=== PATIENT | female | born 1955 | race Caucasian/White ===

== ENCOUNTER 2016-06-14 16:58 | Emergency (ER) | payer BC ==
[2016-06-14 17:21] VITALS: BP 170/54
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
== END 2016-06-14 17:50 | disposition home or self-care (01) ==
LOC: VM.ED 16:58
DX: E11.649 Type 2 diabetes mellitus with hypoglycemia without coma (principal); K21.9 Gastro-esophageal reflux disease without esophagitis; F41.9 Anxiety disorder, unspecified; D64.9 Anemia, unspecified; I10 Essential (primary) hypertension; Z98.49 Cataract extraction status, unspecified eye
CPT/HCPCS: 82962; 99285

== ENCOUNTER 2016-08-18 23:53 | Emergency (ER) | payer BC ==
[2016-08-19 04:33] VITALS: BP 169/51
--- NOTE | 2016-08-21 08:31 | ER ---
Date of Service: 08/18/2016 SUBJECTIVE: Rosy presents to the emergency room with complaints of hypoglycemia. She was found to be minimally responsive by her . EMS was summoned. She was found to have a blood sugar in the 30s and was given D50 and quickly regained consciousness. During this episode, she fell striking the left side of her face on something and sustained a hematoma around her left eye. She did not have loss of consciousness and was alert and oriented following receiving the D50. She states she is not experiencing any headache or neck pain. Denies any chest pain or shortness of breath. PAST MEDICAL HISTORY: 1. Coronary artery disease. 2. Type 2 diabetes mellitus. 3. Hypertension. 4. Depression. 5. Anxiety. 6. Chronic pain. MEDICATIONS: 1. Atorvastatin. 2. Norvasc. 3. Detrol. 4. Brilinta. 5. Ativan. 6. Methadone. 7. Novolin. 8. Lantus. 9. Ibuprofen. 10.Neurontin. 11.[place]-3. 12.Cymbalta. 13.Coreg. 14.Caltrate. 15.Aspirin. 16.Vitamin C. 17.Alendronate. ALLERGIES: Tramadol, pregabalin, penicillin, peanuts, morphine, and banana. REVIEW OF SYSTEMS: Denies any headache, neck pain, chest pain, shortness of breath, abdominal pain, or other worrisome signs or symptoms. PHYSICAL EXAMINATION: General: A 60-year-old female patient, in no acute distress. Vital Signs: Please see nurse's notes. Skin: Warm, pink, and dry. HEENT: Head is normocephalic. She does have a hematoma around her left eye. Examination of the eye proper does not reveal any acute trauma. No obvious globe injury noted. No erythema noted to the sclera. Extraocular movements are intact. Again, she does have periorbital ecchymosis and edema to the left eye. No obvious mid face or facial trauma. No malocclusion noted. Spine, no midline C-spine, thoracic, or lumbar discomfort. Chest: No chest wall trauma noted. Lungs: Clear to auscultation. Heart: Regular rate and rhythm. Abdomen: Soft, nontender. There is no hepatosplenomegaly or masses noted. Pelvis: Stable. Extremities: Without edema. Neurologic: She is alert and oriented. Answers all questions appropriately. Her speech is fluent. Her gait is within normal limits. RADIOGRAPHIC DATA: CT scan of the patient's brain and facial bones were obtained. There was no evidence of any acute pathology. Her bedside glucose was 210. EMERGENCY ROOM COURSE: The patient was given sandwich and some juice to consume, which she did. She stated that she was feeling much better and wished to be discharged. ASSESSMENT: 1. Acute hypoglycemia. 2. Hematoma to the left eye post fall secondary to hypoglycemia. PLAN: The patient will be discharged. Advised to go home when she consumes some more food. She is to return if she has any worsening symptoms, increased pain, neck pain, or other worrisome signs or symptoms. All questions were answered. JESSK: 08/19/2016 01:47:44 MODL: 08/19/2016 05:01:24 /[id number]
== END 2016-08-19 01:25 | disposition home or self-care (01) ==
LOC: VM.ED 23:53
DX: E11.649 Type 2 diabetes mellitus with hypoglycemia without coma (principal); S05.12XA Contusion of eyeball and orbital tissues, left eye, initial encounter; I25.10 Atherosclerotic heart disease of native coronary artery without angina pectoris; F32.9 Major depressive disorder, single episode, unspecified; F41.9 Anxiety disorder, unspecified; I10 Essential (primary) hypertension; W19.XXXA Unspecified fall, initial encounter
CPT/HCPCS: 70450; 70486; 82962; 99284

== ENCOUNTER 2017-04-27 19:33 | Emergency (ER) | payer BC ==
[2017-04-27 20:51] LABS: CHLORIDE,CL 102 mmol/L (98-107); SODIUM,NA 140 mmol/L (136-145)
--- NOTE | 2017-04-27 21:28 | EDM.PDOC ---
ED HPI GENERAL MEDICAL PROBLEM - General Chief Complaint: General Stated Complaint: Hypoglycemia Time Seen by Provider: 04/27/17 19:48 Source of Information: Reports: Patient, EMS, EMS Notes Reviewed History Limitations: Reports: No Limitations - History of Present Illness INITIAL COMMENTS - FREE TEXT/NARRATIVE: Patient brought here via ambulance with complaints of hypglycemia. Patient states that she's been dealing with bouts of hypoglycemia for the last 2 years. However according to reports of integrated pest management technician and family she typically deals with this because she is not eating like she should be. She typically has these episodes more often when she is in [place]. She does get therapy for her right hand in [place] which was injured during a work accident. Believes that during these times she just doesn't eat like she should be. Sintia is concerned about her lack of eating. She denies any recent weight loss. She tells me this evening with her flask maker in [place] as Dr. Lindsey. Last blood glucose was 170. Denies smoking, drinking, or drug use. History of HTN, diabetes, overactive, stents x 2 july of 2015 Onset: Today, Sudden Duration: Chronic Severity: Moderate Improves with: Reports: Eating Associated Symptoms: Reports: Diaphoresis - Related Data Allergies Allergy/AdvReac Type Severity Reaction Status Date / Time banana Allergy Other Verified 08/19/16 04:00 morphine Allergy Nausea and Verified 08/19/16 04:00 Vomiting peanut Allergy Other Verified 08/19/16 04:00 Penicillins Allergy Hives Verified 08/19/16 04:00 pregabalin [From Lyrica] Allergy Fever Verified 08/19/16 04:00 tramadol Allergy Hives Verified 08/19/16 04:00 Home Meds: Home Meds Aspirin [Halfprin] 81 mg PO DAILY 05/17/14 [History] Fish Oil/[place]-3 Fatty Acids [Fish Oil 1,000 MG] 3 gm PO DAILY 05/17/14 [History ] Gabapentin [Neurontin] 300 mg PO TID 05/17/14 [History] Alendronate Sodium [Alendronate] 70 mg PO WEEKLY 07/15/15 [History] Ascorbate Calcium [Vitamin C] 500 mg PO DAILY 07/15/15 [History] Calcium Carbonate/Vitamin D3 [Caltrate 600 + D Soft Chew Tab] 2 tab PO DAILY [History] Carboxymethylcellulose [Methocel E 4 M] 1 drop EYEBOTH Q2H PRN 07/15/15 [History ] LORazepam [Ativan] 1 mg PO BID PRN 07/15/15 [History] Tolterodine Tartrate [Detrol LA] 2 mg PO DAILY 07/15/15 [History] Carvedilol [Coreg] 3.125 mg PO BIDMEALS 08/06/15 [History] Methadone 5 mg PO BID 08/06/15 [History] Nitroglycerin [Nitrostat] 0.4 mg SL ASDIRECTED PRN 08/06/15 [History] Ticagrelor [Brilinta] 90 mg PO BID 08/06/15 [History] amLODIPine [Norvasc] 2.5 mg PO DAILY 08/06/15 [History] atorvaSTATin [Lipitor] 20 mg PO BEDTIME 08/06/15 [History] Enalapril Maleate [Vasotec] 10 mg PO DAILY 08/19/16 [History] Glucagon,Human Recombinant [Glucagon Emergency Kit] 1 mg IJ ASDIRECTED 08/19/16 [History] metFORMIN HCl [Glucophage] 1,000 mg PO BID 08/19/16 [History] Past Medical History Cardiovascular History: Reports: Hypertension Gastrointestinal History: Reports: GERD Psychiatric History: Reports: Anxiety Endocrine/Metabolic History: Reports: Diabetes, Type I Hematologic History: Reports: Anemia - Past Surgical History HEENT Surgical History: Reports: Cataract Surgery Cardiovascular Surgical History: Reports: Coronary Artery Stent Musculoskeletal Surgical History: Reports: Hip Replacement Social & Family History - Tobacco Use Smoking Status *Q: Unknown Ever Smoked - Alcohol Use Days Per Week of Alcohol Use: 0 - Recreational Drug Use Recreational Drug Use: No ED ROS GENERAL - Review of Systems Review Of Systems: See Below Constitutional: Reports: Diaphoresis HEENT: Reports: No Symptoms Respiratory: Reports: No Symptoms Cardiovascular: Reports: No Symptoms Endocrine: Reports: No Symptoms GI/Abdominal: Reports: No Symptoms : Reports: No Symptoms Musculoskeletal: Reports: No Symptoms Skin: Reports: No Symptoms Neurological: Reports: No Symptoms Psychiatric: Reports: No Symptoms Hematologic/Lymphatic: Reports: No Symptoms Immunologic: Reports: No Symptoms ED EXAM, GENERAL - Physical Exam Exam: See Below Exam Limited By: No Limitations General Appearance: Alert, WD/WN, No Apparent Distress Eye Exam: Bilateral Eye: EOMI, PERRL Ears: Normal TMs Head: Atraumatic, Normocephalic Neck: Normal Inspection, Supple, Non-Tender, Full Range of Motion Respiratory/Chest: No Respiratory Distress, Lungs Clear, Normal Breath Sounds, No Accessory Muscle Use, Chest Non-Tender Cardiovascular: Normal Peripheral Pulses, Regular Rate, Rhythm, No Edema, No Gallop, No JVD, No Murmur, No Rub Peripheral Pulses: 2+: Posterior Tibial (L), Posterior Tibial (R), Dorsalis Pedis (L), Dorsalis Pedis (R) Back Exam: Normal Inspection, Full Range of Motion, NT Extremities: Normal Inspection, Normal Range of Motion, Non-Tender, Normal Capillary Refill, No Pedal Edema Neurological: Alert, Oriented, CN II-XII Intact, Normal Cognition, Normal Gait, Normal Reflexes, No Motor/Sensory Deficits Psychiatric: Normal Affect, Normal Mood Skin Exam: Warm, Dry, Intact, Normal Color, No Rash Lymphatic: No Adenopathy Course - Orders/Labs/Meds Orders: Active Orders 24 hr Category Date Time Status Accu Check [Blood Glucose Check, Bedside] [] ONETIME Care 04/27/17 20:09 Active Labs: Laboratory Tests 04/27/17 04/27/17 04/27/17 Range/Units 20:23 20:23 20:23 WBC 8.8 (4.0-10.0) x10^3/uL RBC 3.94 L (4.00-5.50) x10^6/uL Hgb 11.7 L (12.0-16.0) g/dL Hct 35.6 (33.0-47.0) % MCV 90.4 D (78.0-93.0) fL MCH 29.7 (26.0-32.0) pg MCHC 32.9 (32.0-36.0) g/dL RDW Coeff of Gerda 13.2 (10.0-15.0) % Plt Count 281 (130-400) x10^3/uL Neut % (Auto) 77.6 (50.0-80.0) % Lymph % (Auto) 15.4 L (25.0-50.0) % [place] % (Auto) 4.8 (2.0-11.0) % Eos % (Auto) 1.7 (0.0-4.0) % Baso % (Auto) 0.5 (0.2-1.2) % Sodium 140 (136-145) mmol/L Potassium 4.5 (3.5-5.1) mmol/L Chloride 102 (98-107) mmol/L Carbon Dioxide 28 (21-32) mmol/L BUN 26 H (7-18) mg/dL Creatinine 1.1 H (0.55-1.02) mg/dL Est Cr Clr Drug Dosing TNP Estimated GFR (MDRD) 50 Glucose 83 (74-106) mg/dL Calcium 9.4 (8.5-10.1) mg/dL Corrected Calcium 9.48 (8.5-10.1) mg/dL Total Bilirubin 0.3 (0.2-1.0) mg/dL AST 18 (15-37) U/L ALT 27 (14-59) U/L Alkaline Phosphatase 75 (46-116) U/L C-Reactive Protein 0.5 (<=0.9) mg/dL Total Protein 8.0 (6.4-8.2) g/dL Albumin 3.9 (3.4-5.0) g/dL Globulin 4.1 Albumin/Globulin Ratio 0.95 Urine Color Light yellow (YELLOW) Urine Appearance Slightly cloudy H (CLEAR) Urine pH 7.0 (5.0-8.0) Ur Specific [place] 1.015 Urine Protein 30 H (NEGATIVE) mg/dL Urine Glucose (UA) 100 H (NEGATIVE) mg/dL Urine Ketones Negative (NEGATIVE) mg/dL Urine Occult Blood Negative (NEGATIVE) Urine Nitrite Negative (NEGATIVE) Urine Bilirubin Negative (NEGATIVE) Urine Urobilinogen 0.2 (0.2) EU/dL Ur Leukocyte Esterase Negative (NEGATIVE) Urine RBC 0-5 (NOT SEEN) /HPF Urine WBC 0-5 (NOT SEEN) /HPF Ur Squamous Epith Cells Not seen (NEGATIVE) /HPF Urine Bacteria Rare (NEGATIVE) /HPF Urine Mucus Rare H (NEGATIVE) /LPF - Re-Assessments/Exams Free Text/Narrative Re-Assessment/Exam: 04/27/17 22:17 Patient is known here for similar type attacks of hypoglycemia. She has not followed up with her primary or flask maker. Education given regarding need to eat during the day on a regular basis to maintain blood glucose levels. Departure - Departure Time of Disposition: 21:30 Disposition: Home, Self-Care 01 Condition: Good Clinical Impression: Hypoglycemia associated with diabetes - Discharge Information Instructions: Hypoglycemia Referrals: Thom Rodriguez MD [Primary Care Provider] - Additional Instructions: You need to make sure to be eating regularly to maintain your blood sugars. Your labs tonight are within normal ranges. Follow up with your primary provider to determine if there is anything else causing this. Please call us if you have any questions or concerns in the meantime. - Problem List & Annotations (1) Hypoglycemia associated with diabetes SNOMED Code(s): 289145029 Code(s): E11.649 - TYPE 2 DIABETES MELLITUS WITH HYPOGLYCEMIA WITHOUT COMA Status: Acute Priority: Medium Current Visit: Yes - Problem List Review Problem List Initiated/Reviewed/Updated: Yes - My Orders Last 24 Hours: My Active Orders 04/27/17 20:09 Accu Check [Blood Glucose Check, Bedside] [RC] ONETIME - Assessment/Plan Last 24 Hours: My Active Orders 04/27/17 20:09 Accu Check [Blood Glucose Check, Bedside] [RC] ONETIME Assessment:: hypoglycemia Plan: You need to make sure to be eating regularly to maintain your blood sugars. Your labs tonight are within normal ranges. Follow up with your primary provider to determine if there is anything else causing this. Please call us if you have any questions or concerns in the meantime.
[2017-04-28 01:18] VITALS: BP 175/62
== END 2017-04-27 21:44 | disposition home or self-care (01) ==
LOC: VM.ED 19:33
DX: E10.649 Type 1 diabetes mellitus with hypoglycemia without coma (principal); K21.9 Gastro-esophageal reflux disease without esophagitis; I10 Essential (primary) hypertension; Z79.82 Long term (current) use of aspirin; Z79.84 Long term (current) use of oral hypoglycemic drugs; Z79.899 Other long term (current) drug therapy; Z91.018 Allergy to other foods; Z91.010 Allergy to peanuts; Z88.5 Allergy status to narcotic agent; Z88.0 Allergy status to penicillin; Z88.8 Allergy status to other drugs, medicaments and biological substances
CPT/HCPCS: 36415; 80053; 81001; 82962; 85025; 86140; 99285

== ENCOUNTER 2017-12-24 11:53 | Emergency (ER) | payer BC ==
[2017-12-24 13:07] VITALS: BP 160/54
--- NOTE | 2017-12-25 06:45 | EDM.PDOC ---
ED HPI GENERAL MEDICAL PROBLEM - General Chief Complaint: General Stated Complaint: HYPOGLYCEMIA Time Seen by Provider: 12/24/17 11:53 Source of Information: Reports: Patient, Family - History of Present Illness INITIAL COMMENTS - FREE TEXT/NARRATIVE: Pt. had a hypoglycemic episode while shopping. EMS was summoned. Pt. was given IV D50. Blood sugar increased from approx. 30mg/dl to 170mg/dl. Pt. became alert and was able to answer questions. Denies any chest pain, shortness of breath, or weakness. Offers no complaints. - Related Data Allergies Allergy/AdvReac Type Severity Reaction Status Date / Time banana Allergy Other Verified 12/24/17 13:02 morphine Allergy Nausea and Verified 12/24/17 13:02 Vomiting peanut Allergy Other Verified 12/24/17 13:02 Penicillins Allergy Hives Verified 12/24/17 13:02 pregabalin [From Lyrica] Allergy Fever Verified 12/24/17 13:02 tramadol Allergy Hives Verified 12/24/17 13:02 Home Meds: Home Meds Aspirin [Halfprin] 81 mg PO DAILY 05/17/14 [History] Fish Oil/[place]-3 Fatty Acids [Fish Oil 1,000 MG] 3 gm PO DAILY 05/17/14 [History ] Gabapentin [Neurontin] 300 mg PO TID 05/17/14 [History] Alendronate Sodium [Alendronate] 70 mg PO WEEKLY 07/15/15 [History] Ascorbate Calcium [Vitamin C] 500 mg PO DAILY 07/15/15 [History] Calcium Carbonate/Vitamin D3 [Caltrate 600 + D Soft Chew Tab] 2 tab PO DAILY [History] Carboxymethylcellulose [Methocel E 4 M] 1 drop EYEBOTH Q2H PRN 07/15/15 [History ] LORazepam [Ativan] 1 mg PO BID PRN 07/15/15 [History] Tolterodine Tartrate [Detrol LA] 2 mg PO DAILY 07/15/15 [History] Carvedilol [Coreg] 3.125 mg PO BIDMEALS 08/06/15 [History] Methadone 5 mg PO BID 08/06/15 [History] Nitroglycerin [Nitrostat] 0.4 mg SL ASDIRECTED PRN 08/06/15 [History] Ticagrelor [Brilinta] 90 mg PO BID 08/06/15 [History] amLODIPine [Norvasc] 2.5 mg PO DAILY 08/06/15 [History] atorvaSTATin [Lipitor] 20 mg PO BEDTIME 08/06/15 [History] Enalapril Maleate [Vasotec] 10 mg PO DAILY 08/19/16 [History] Glucagon,Human Recombinant [Glucagon Emergency Kit] 1 mg IJ ASDIRECTED 08/19/16 [History] metFORMIN HCl [Glucophage] 1,000 mg PO BID 08/19/16 [History] Insulin Aspart [NovoLOG] 1 unit SQ TID 04/28/17 [History] Insulin Degludec [Tresiba Flextouch U-100] 25 units SQ DAILY 04/28/17 [History] Past Medical History Cardiovascular History: Reports: Hypertension Gastrointestinal History: Reports: GERD [employer]BER History: 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: Psychiatric History: Reports: Anxiety Endocrine/Metabolic History: Reports: Diabetes, Type I Hematologic History: Reports: Anemia - Past Surgical History HEENT Surgical History: Reports: Cataract Surgery Cardiovascular Surgical History: Reports: Coronary Artery Stent Musculoskeletal Surgical History: Reports: Hip Replacement Social & Family History - Tobacco Use Smoking Status *Q: Never Smoker - Recreational Drug Use Recreational Drug Use: No ED ROS GENERAL - Review of Systems Review Of Systems: See Below Constitutional: Reports: No Symptoms HEENT: Reports: No Symptoms Respiratory: Reports: No Symptoms Cardiovascular: Reports: No Symptoms Endocrine: Reports: No Symptoms GI/Abdominal: Reports: No Symptoms : Reports: No Symptoms Musculoskeletal: Reports: No Symptoms Skin: Reports: No Symptoms Neurological: Reports: No Symptoms Psychiatric: Reports: No Symptoms Hematologic/Lymphatic: Reports: No Symptoms Immunologic: Reports: No Symptoms ED EXAM, GENERAL - Physical Exam Exam: See Below Exam Limited By: No Limitations General Appearance: Alert, WD/WN, No Apparent Distress Respiratory/Chest: No Respiratory Distress, Lungs Clear, Normal Breath Sounds, No Accessory Muscle Use, Chest Non-Tender Cardiovascular: Normal Peripheral Pulses, Regular Rate, Rhythm, No Edema, No Gallop, No JVD, No Murmur, No Rub Peripheral Pulses: 4+: Radial (L), Radial (R) Extremities: Normal Inspection, Normal Range of Motion, Non-Tender, Normal Capillary Refill, No Pedal Edema Neurological: Alert, Oriented, CN II-XII Intact, Normal Cognition, Normal Gait, Normal Reflexes, No Motor/Sensory Deficits Course - Vital Signs Last Recorded V/S: Last Vital Signs Temp 36.1 C 12/24/17 11:53 Pulse 79 12/24/17 11:53 Resp 18 12/24/17 11:53 BP 160/54 H 12/24/17 11:53 Pulse Ox 98 12/24/17 11:53 Departure - Departure Time of Disposition: 12:28 Disposition: Home, Self-Care 01 Clinical Impression: Hypoglycemia - Discharge Information Instructions: Hypoglycemia, [id number] Referrals: Thom Rodriguez MD [Primary Care Provider] - Forms: ED Department Discharge Additional Instructions: Home to rest. Check your sugars closely today. Eat plenty today. - Assessment/Plan Plan: Home to rest. Check your sugars closely today. Eat plenty today.
== END 2017-12-24 12:28 | disposition home or self-care (01) ==
LOC: VM.ED 11:53
DX: E10.649 Type 1 diabetes mellitus with hypoglycemia without coma (principal); I10 Essential (primary) hypertension; Z79.4 Long term (current) use of insulin; Z79.82 Long term (current) use of aspirin; Z79.899 Other long term (current) drug therapy; Z91.018 Allergy to other foods; Z88.5 Allergy status to narcotic agent; Z88.0 Allergy status to penicillin; Z91.010 Allergy to peanuts
CPT/HCPCS: 99285

== ENCOUNTER 2019-03-14 11:14 | Observation (INO) | payer MEDICARE, OTHER ==
--- NOTE | 2019-03-14 11:33 | EDM.PDOC ---
ED HPI GENERAL MEDICAL PROBLEM - General Chief Complaint: General Stated Complaint: FALL Time Seen by Provider: 03/14/19 11:19 Source of Information: Reports: EMS, EMS Notes Reviewed, Family History Limitations: Reports: No Limitations - History of Present Illness INITIAL COMMENTS - FREE TEXT/NARRATIVE: Patient comes into the emergency department via EMS for a fall resulting in loss of consciousness and low blood sugar. EMS took her blood sugar on scene which showed 31. Patient was disoriented, confused, diaphoretic. She was given D50 1 amp just prior to arrival to the emergency department. states that they were at [employer] shopping when he noticed his got confused, dizzy and fell to the floor. He did give her a glucose drink he carries on him prior to EMS arrival. Upon arrival to the emergency department the patient was becoming more alert and oriented. She is able to follow questions and commands without hesitation. She states that she did feel herself get dizzy and weak in the hardware shop but does not remember anything else until her arrival to the ER. Patient is on a blood thinner however pharmacy states that she has not filled that medication and greater than 30 days. states that they have had some financial difficulties and she has been picking and choosing what medication she takes. It is uncertain if she's actually been on blood thinner the course of the last month. Patient currently denies any pain or discomfort. EMS did provide a ice pack to the right temporal region for she does have a hematoma. Patient denies any pain or discomfort in that area. Patient also denies any recent illnesses or injuries. She denies and vision changes, headache , chest pain, SOB, nausea, vomiting, or peripheral edema. 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 (see below) (D50 1 amp given via EMS) - Related Data Allergies Allergy/AdvReac Type Severity Reaction Status Date / Time banana Allergy Other Verified 03/14/19 12:03 morphine Allergy Nausea and Verified 03/14/19 12:03 Vomiting peanut Allergy Other Verified 03/14/19 12:03 Penicillins Allergy Hives Verified 03/14/19 12:03 pregabalin [From Lyrica] Allergy Fever Verified 03/14/19 12:03 tramadol Allergy Hives Verified 03/14/19 12:03 Home Meds: Home Meds Aspirin [Halfprin] 81 mg PO DAILY 05/17/14 [History] Fish Oil/[place]-3 Fatty Acids [Fish Oil 1,000 MG] 3 gm PO DAILY 05/17/14 [History ] Gabapentin [Neurontin] 300 mg PO TID 05/17/14 [History] Alendronate Sodium [Alendronate] 70 mg PO WEEKLY 07/15/15 [History] Ascorbate Calcium [Vitamin C] 500 mg PO DAILY 07/15/15 [History] Calcium Carbonate/Vitamin D3 [Caltrate 600 + D Soft Chew Tab] 2 tab PO DAILY [History] Carboxymethylcellulose [Methocel E 4 M] 1 drop EYEBOTH Q2H PRN 07/15/15 [History ] LORazepam [Ativan] 1 mg PO BID PRN 07/15/15 [History] Tolterodine Tartrate [Detrol LA] 2 mg PO DAILY 07/15/15 [History] Carvedilol [Coreg] 3.125 mg PO BIDMEALS 08/06/15 [History] Methadone 5 mg PO BID 08/06/15 [History] Nitroglycerin [Nitrostat] 0.4 mg SL ASDIRECTED PRN 08/06/15 [History] Ticagrelor [Brilinta] 90 mg PO BID 08/06/15 [History] amLODIPine [Norvasc] 2.5 mg PO DAILY 08/06/15 [History] atorvaSTATin [Lipitor] 20 mg PO BEDTIME 08/06/15 [History] Enalapril Maleate [Vasotec] 10 mg PO DAILY 08/19/16 [History] Glucagon,Human Recombinant [Glucagon Emergency Kit] 1 mg IJ ASDIRECTED 08/19/16 [History] metFORMIN HCl [Glucophage] 1,000 mg PO BID 08/19/16 [History] Insulin Aspart [NovoLOG] 1 unit SQ TID 04/28/17 [History] Insulin Degludec [Tresiba Flextouch U-100] 25 units SQ DAILY 04/28/17 [History] Past Medical History Cardiovascular History: Reports: Hypertension Gastrointestinal History: Reports: GERD 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 Constitutional: Reports: No Symptoms HEENT: Reports: No Symptoms Respiratory: Reports: No Symptoms Cardiovascular: Reports: No Symptoms Endocrine: Reports: No Symptoms GI/Abdominal: Reports: No Symptoms Neurological: Reports: No Symptoms Psychiatric: Reports: No Symptoms Hematologic/Lymphatic: Reports: No Symptoms Immunologic: Reports: No Symptoms ED EXAM, GENERAL - Physical Exam Exam: See Below Exam Limited By: No Limitations General Appearance: Alert, WD/WN, No Apparent Distress Eye Exam: Bilateral Eye: EOMI, PERRL Ears: Normal External Exam, Normal Canal, Hearing Grossly Normal, Normal TMs Ear Exam: Bilateral Ear: Auricle Normal, Canal Normal, TM normal Nose: Normal Inspection, Normal Mucosa, No Blood Throat/Mouth: Normal Inspection, Normal Lips Head: Other (right temporal region hematoma noted above the right eye left pariatal-temporal region hematoma noted. ) Neck: Normal Inspection, Supple, Non-Tender, Full Range of Motion, Other (did state 1 first time on palpation pain noted midline over C3-4. Second attempt pt denied pain. ) Respiratory/Chest: No Respiratory Distress, Lungs Clear, Normal Breath Sounds, No Accessory Muscle Use, Chest Non-Tender Cardiovascular: Normal Peripheral Pulses, Regular Rate, Rhythm, No Edema Back Exam: Normal Inspection, Full Range of Motion Extremities: Normal Inspection, Normal Range of Motion, Non-Tender Neurological: Alert, Oriented Psychiatric: Normal Affect, Normal Mood Skin Exam: Warm, Dry, Intact Course - Orders/Labs/Meds Orders: Active Orders 24 hr Category Date Time Status EKG Documentation Completion [RC] STAT Care 03/14/19 11:24 Active Cervical Spine wo Cont [CT] Stat Exams 03/14/19 11:24 Taken Head wo Cont [CT] Stat Exams 03/14/19 11:24 Taken COMPREHENSIVE METABOLIC PN,CMP [CHEM] Stat Lab 03/14/19 11:34 Received INR,PT,PROTHROMBIN TIME [COAG] Stat Lab 03/14/19 11:34 Received TROPONIN I [CHEM] Stat Lab 03/14/19 11:34 Received Labs: Laboratory Tests 03/14/19 03/14/19 Range/Units 11:18 11:34 WBC 3.9 L (4.0-10.0) x10^3/uL RBC 4.31 (4.00-5.50) x10^6/uL Hgb 12.8 (12.0-16.0) g/dL Hct 39.6 (33.0-47.0) % MCV 91.9 (78.0-93.0) fL MCH 29.7 (26.0-32.0) pg MCHC 32.3 (32.0-36.0) g/dL RDW Coeff of Gerda 18.4 H (10.0-15.0) % Plt Count 194 D (130-400) x10^3/uL Neut % (Auto) 70.7 (50.0-80.0) % Lymph % (Auto) 16.3 L (25.0-50.0) % [place] % (Auto) 13.0 H (2.0-11.0) % Eos % (Auto) 0.0 (0.0-4.0) % Baso % (Auto) 0.0 L (0.2-1.2) % POC Glucose 119 H (74-106) mg/dL - Re-Assessments/Exams Free Text/Narrative Re-Assessment/Exam: 03/14/19 12:34 Patient is alert and oriented and is following all commands. It is recommended that she be hospitalized for observation regarding her loss of consciousness and hypoglycemic events. Departure - Departure Time of Disposition: 12:40 Disposition: Refer to Observation Condition: Good Clinical Impression: Hematoma and contusion, Hypoglycemia, Anticoagulant long-term use Fall Qualifiers: Encounter type: initial encounter Qualified Code(s): W19.XXXA - Unspecified fall, initial encounter - Discharge Information *PRESCRIPTION DRUG MONITORING PROGRAM REVIEWED*: Not Applicable *COPY OF PRESCRIPTION DRUG MONITORING REPORT IN PATIENT POLO: Not Applicable Referrals: Thom Rodriguez MD [Primary Care Provider] - Forms: ED Department Discharge Sepsis Event Note - Focused Exam Date Exam was Performed: 03/14/19 Time Exam was Performed: 11:49 - Problem List & Annotations (1) Hypoglycemic event in diabetes SNOMED Code(s): 821899881 Code(s): E11.649 - TYPE 2 DIABETES MELLITUS WITH HYPOGLYCEMIA WITHOUT COMA Status: Acute Current Visit: No - Problem List Review Problem List Initiated/Reviewed/Updated: Yes - My Orders Last 24 Hours: My Active Orders 03/14/19 11:24 EKG Documentation Completion [RC] STAT Cervical Spine wo Cont [CT] Stat Head wo Cont [CT] Stat 03/14/19 11:34 COMPREHENSIVE METABOLIC PN,CMP [CHEM] Stat INR,PT,PROTHROMBIN TIME [COAG] Stat TROPONIN I [CHEM] Stat - Assessment/Plan Admission H&P: Please use this note as an admission H&P Last 24 Hours: My Active Orders 03/14/19 11:24 EKG Documentation Completion [RC] STAT Cervical Spine wo Cont [CT] Stat Head wo Cont [CT] Stat 03/14/19 11:34 COMPREHENSIVE METABOLIC PN,CMP [CHEM] Stat INR,PT,PROTHROMBIN TIME [COAG] Stat TROPONIN I [CHEM] Stat Assessment:: 1. Hypoglycemia 2. Fall with loss of consciousness 3. Head hematoma 4. Anticoagulant use Plan: 1. CT of the head and neck completed in the emergency department. Results reviewed with patient 2. Labs completed in ER. Results reviewed with patient 3. EKG completed in the ER. Results reviewed with patient 4. C-spine maintain until CT results obtained due to the patient losing consciousness and level of alertness not back to patient's baseline with statements of intermittent upon palpation- Negative 5. Patient will be admitted to the hospitals observation unit for neurological assessment, hypoglycemic event, loss of consciousness, and hematoma formation while on blood thinners. 6. Patient will be admitted as observation, up with assistance, CLAIRE harris applied for DVT prophylaxis, ambulation encourage, diabetic diet, blood glucose monitoring and neuro checks completed. 7. All questions and concerns were addressed with the family prior to admission 8. Nursing updated of the plan of care
--- NOTE | 2019-03-14 11:52 | CT ---
[id number] CT/CT Head WO IV EXAM: CT Head WO IV CLINICAL DATA: FALL. COMPARISON STUDY: 2016. FINDINGS: No intracranial hemorrhage, extra-axial fluid collection, mass, or acute ischemia. No hydrocephalus. Scalp contusions over the right frontal and left frontotemporal regions. No underlying calvarial fracture. Mild changes of paranasal sinusitis. IMPRESSION: Right frontal and left frontotemporal scalp contusions without underlying calvarial fracture or acute intracranial hemorrhage. Will Null MD 03/14/19 [id number] Thank you for allowing us to participate in the care of your patient.
[2019-03-14 12:02] LABS: CHLORIDE,CL 105 mmol/L (98-107); SODIUM,NA 137 mmol/L (136-145)
[2019-03-14] MEDS ORDERED: Ondansetron 4 MG Tab.DIS PO PRN (13:28)
[2019-03-14] MEDS ORDERED: Hypromellose 0.3% Ophth Soln 15 ML Bottle EYEBOTH PRN (13:31)
[2019-03-14] MEDS ORDERED: LORazepam 0.5 MG Tab PO PRN (13:31)
[2019-03-14] MEDS ORDERED: Nitroglycerin 0.4 MG Tab.SL SL PRN (13:31)
--- NOTE | 2019-03-14 13:41 | CT ---
[id number] CT/CT Cervical Spine WO IV EXAM: CT Cervical Spine WO IV INDICATION: FALL. COMPARISON: None. DISCUSSION: No fracture or compression deformity. Vertebral bodies remain in normal alignment. Advanced degenerative change at the atlantoaxial articulation. Advanced spondylosis on the left involving the masses of C1 and C2. No prevertebral soft tissue edema. Lung apices are clear. IMPRESSION: No acute findings in the cervical spine. Will Null MD 03/14/19 [id number] Thank you for allowing us to participate in the care of your patient.
[2019-03-14] MEDS ORDERED: LORazepam 0.5 MG Tab**PTOM PO PRN (17:22)
[2019-03-14] MEDS ORDERED: INSULIN ASPART SQ SCH (18:00)
[2019-03-14] MEDS ORDERED: Carvedilol 3.125 MG Tab PO SCH (18:00)
[2019-03-14] MEDS: CARVEDILOL 3.125 MG PO SCH (18:47)
[2019-03-14] MEDS: INSULIN ASPART SQ SCH (18:47)
[2019-03-14] MEDS: TAPENTADOL 75 MG PO SCH (19:47)
[2019-03-14] MEDS: Hypromellose 0.3% Ophth Soln 15 ML Bottle EYEBOTH SCH (19:47)
[2019-03-14] MEDS ORDERED: ATORVASTATIN 80 MG PO SCH (20:00)
[2019-03-14] MEDS ORDERED: Gabapentin 300 MG Cap**PTOM PO SCH (20:00)
[2019-03-14] MEDS ORDERED: Gabapentin 300 MG Cap PO SCH (20:00)
[2019-03-14] MEDS ORDERED: Calcium Carbonate/Vitamin D3 1250 MG-200 Unit Tab PO SCH (20:00)
[2019-03-14] MEDS ORDERED: atorvaSTATin 40 MG Tab PO SCH (20:00)
[2019-03-15 06:04] VITALS: PULSE 56
[2019-03-15] MEDS: INSULIN DEGLUDEC SQ SCH ×2 (07:58→08:05)
[2019-03-15] MEDS: TAPENTADOL 75 MG PO SCH (07:59)
[2019-03-15] MEDS: Hypromellose 0.3% Ophth Soln 15 ML Bottle EYEBOTH SCH (07:59)
[2019-03-15] MEDS: INSULIN ASPART SQ SCH ×2 (07:59→11:15)
[2019-03-15] MEDS: CARVEDILOL 3.125 MG PO SCH (08:00)
[2019-03-15] MEDS ORDERED: Gabapentin 300 MG Cap**PTOM PO SCH (08:00)
[2019-03-15] MEDS ORDERED: Gabapentin 300 MG Cap PO SCH (08:00)
[2019-03-15] MEDS ORDERED: Aspirin 81 MG Tab.EC PO SCH (08:00)
[2019-03-15] MEDS ORDERED: ENALAPRIL 10 MG PO SCH (08:00)
[2019-03-15] MEDS ORDERED: AMLODIPINE 2.5 MG PO SCH (08:00)
[2019-03-15] MEDS ORDERED: Fish Oil/Omega-3 Fatty Acids 1 Gm Cap PO SCH (08:00)
[2019-03-15] MEDS ORDERED: FESOTERODINE FUMARATE 4 MG PO SCH ×2 (08:00)
[2019-03-15] MEDS ORDERED: Ascorbic Acid 500 MG Tab PO SCH (08:00)
[2019-03-15] MEDS ORDERED: DULoxetine 20 MG Cap PO SCH (08:00)
[2019-03-15] MEDS ORDERED: DULOXETINE 20 MG PO SCH (08:00)
[2019-03-15] MEDS ORDERED: amLODIPine 2.5 MG Tab PO SCH (08:00)
[2019-03-15 08:01] VITALS: BP 135/60
[2019-03-15 08:04] LABS: ANION GAP 15.8 mmol/L (10-20)
--- NOTE | 2019-03-15 10:49 | PCM.DCSUM1 ---
Discharge Summary - Hospital Course Free Text/Narrative:: Rosy is a 63 year old female who presented to the ER per ambulance after a fall with brief loss of consciousness and hypoglycemia. Patient recalls feeling weak at the hardware store but nothing after. Was disoriented, confused and diaphoretic on EMS arrival. EMS did check blood sugar on scene and was low at 31. She was given 1 amp of D50 prior to arrival to ER. She had been out shopping and had noted that she was becoming dizzy, was confused and fell to the floor. He did given her a glucose drink that he caries with him. Patient did hit head on floor. due to some recent financial difficultes, did relate that she has been picking and choosing what medication to take. History of being on blood thinners but unsure how much she had taken over the last month as pharmacy did report she had not filled this med. On arrival to the ER, patient was oriented, lethargic but becoming more alert over time. Denies any pain to head or discomfort elsewhere. Had not been ill. No chest pain, shortness of breath, N/V/D. Labs note improvement of glucose to 107 initially. Creatinine 1.7. Other labs stable. CT scan of head and neck were clear. Admitted for neurological monitoring. Diagnosis: Stroke: No Modified Newport Scale: No Symptoms at All Modified Newport Scale Score: 0 - Discharge Data Discharge Date: 03/15/19 Discharge Disposition: Home, Self-Care 01 Condition: Good - Referral to Home Health Primary Care Physician: Thom Rodriguez MD - Patient Summary/Data Complications: none Hospital Course: Patient is feeling good this am. Denies any head pain. Bruising noted to right forehead region, nontender. BARBARA. Lung sounds clear, heart rate regular. She denies pain in joints. Has been getting increase Fiasp units per carb base, received an extra 8 units last night, 6 units this am as blood sugars have remained 300-420. Patient relates not unusual for her after an event like this. Will discharge home with usual meds. 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 - Patient Instructions Diet: Diabetic Diet Activity: As Tolerated - Discharge Plan *PRESCRIPTION DRUG MONITORING PROGRAM REVIEWED*: Not Applicable *COPY OF PRESCRIPTION DRUG MONITORING REPORT IN PATIENT POLO: Not Applicable Home Medications: Home Meds Aspirin [Halfprin] 81 mg PO DAILY 05/17/14 [History] Fish Oil/Blythe-3 Fatty Acids [Fish Oil 1,000 MG] 3 gm PO DAILY 05/17/14 [History ] Gabapentin [Neurontin] 300 mg PO DAILY 05/17/14 [History] Ascorbate Calcium [Vitamin C] 500 mg PO DAILY 07/15/15 [History] Calcium Carbonate/Vitamin D3 [Caltrate 600 + D Soft Chew Tab] 2 tab PO BEDTIME 07/15/15 [History] Carboxymethylcellulose [Methocel E 4 M] 1 drop EYEBOTH Q2H PRN 07/15/15 [History ] LORazepam [Ativan] 1 mg PO BID PRN 07/15/15 [History] Carvedilol [Coreg] 3.125 mg PO BIDMEALS 08/06/15 [History] Nitroglycerin [Nitrostat] 0.4 mg SL ASDIRECTED PRN 08/06/15 [History] Ticagrelor [Brilinta] 90 mg PO BID 08/06/15 [History] amLODIPine [Norvasc] 2.5 mg PO DAILY 08/06/15 [History] atorvaSTATin [Lipitor] 80 mg PO BEDTIME 08/06/15 [History] Enalapril Maleate [Vasotec] 10 mg PO DAILY 08/19/16 [History] Glucagon,Human Recombinant [Glucagon Emergency Kit] 1 mg IJ ASDIRECTED 08/19/16 [History] Insulin Degludec [Tresiba Flextouch U-100] 21 units SQ DAILY 04/28/17 [History] DULoxetine [Cymbalta] 20 mg PO DAILY 03/14/19 [History] Fesoterodine Fumarate [Toviaz] 4 mg PO DAILY 03/14/19 [History] Gabapentin [Neurontin] 600 mg PO BEDTIME 03/14/19 [History] Insulin Aspart (Niacinamide) [Fiasp Penfill 100 Unit/ml Cart] 1 unit SQ ASDIRECTED 03/14/19 [History] Tapentadol HCl [Nucynta] 75 mg PO TID 03/14/19 [History] cycloSPORINE [Restasis Multidose] 1 drop EYEBOTH BID 03/14/19 [History] Forms: ED Department Discharge Referrals: Thom Rodriguez MD [Primary Care Provider] - (Follow up with Dr. Mclean in one week) - Discharge Summary/Plan Comment DC Time >30 min.: No - General Info Date of Service: 03/15/19 Admission Dx/Problem (Free Text: Hypokalemia FAll with contusion Functional Status: Reports: Pain Controlled, Tolerating Diet, Ambulating - Review of Systems General: Denies: Weakness, Fatigue, Malaise HEENT: Denies: Ear Pain Pulmonary: Denies: Shortness of Breath, Cough Cardiovascular: Denies: Chest Pain, Edema, Lightheadedness Gastrointestinal: Denies: Abdominal Pain, Nausea, Vomiting Genitourinary: Reports: No Symptoms Musculoskeletal: Reports: No Symptoms Skin: Reports: Bruising Neurological: Denies: Confusion, Headache, Weakness - Patient Data Vitals - Most Recent: Last Vital Signs Temp 97.6 F 03/15/19 06:04 Pulse 56 L 03/15/19 08:00 Resp 18 03/15/19 06:04 BP 135/60 03/15/19 08:00 Pulse Ox 95 03/15/19 06:04 Weight - Most Recent: 138 lb I&O - Last 24 hours: Intake & Output 03/14/19 03/15/19 03/15/19 22:59 06:59 14:59 Intake Total 300 Balance 300 Lab Results - Last 24 hrs: Laboratory Results - last 24 hr 03/14/19 03/14/19 03/14/19 Range/Units 11:18 11:34 11:34 WBC 3.9 L (4.0-10.0) x10^3/uL RBC 4.31 (4.00-5.50) x10^6/uL Hgb 12.8 (12.0-16.0) g/dL Hct 39.6 (33.0-47.0) % MCV 91.9 (78.0-93.0) fL MCH 29.7 (26.0-32.0) pg MCHC 32.3 (32.0-36.0) g/dL RDW Coeff of Gerda 18.4 H (10.0-15.0) % Plt Count 194 D (130-400) x10^3/uL Neut % (Auto) 70.7 (50.0-80.0) % Lymph % (Auto) 16.3 L (25.0-50.0) % Stone % (Auto) 13.0 H (2.0-11.0) % Eos % (Auto) 0.0 (0.0-4.0) % Baso % (Auto) 0.0 L (0.2-1.2) % PT 10.5 (10.0-12.8) SEC INR 0.9 L (2.0-3.5) Sodium (136-145) mmol/L Potassium (3.5-5.1) mmol/L Chloride (98-107) mmol/L Carbon Dioxide (21-32) mmol/L Anion Gap (10-20) mmol/L BUN (7-18) mg/dL Creatinine (0.55-1.02) mg/dL Est Cr Clr Drug Dosing Estimated GFR (MDRD) Glucose (74-106) mg/dL POC Glucose 119 H (74-106) mg/dL Calcium (8.5-10.1) mg/dL Corrected Calcium (8.5-10.1) mg/dL Total Bilirubin (0.2-1.0) mg/dL AST (15-37) U/L ALT (14-59) U/L Alkaline Phosphatase (46-116) U/L POC Troponin I (0.00-0.08) ng/mL Total Protein (6.4-8.2) g/dL Albumin (3.4-5.0) g/dL Globulin Albumin/Globulin Ratio 03/14/19 03/14/19 03/14/19 Range/Units 11:34 11:37 17:24 WBC (4.0-10.0) x10^3/uL RBC (4.00-5.50) x10^6/uL Hgb (12.0-16.0) g/dL Hct (33.0-47.0) % MCV (78.0-93.0) fL MCH (26.0-32.0) pg MCHC (32.0-36.0) g/dL RDW Coeff of Gerda (10.0-15.0) % Plt Count (130-400) x10^3/uL Neut % (Auto) (50.0-80.0) % Lymph % (Auto) (25.0-50.0) % Stone % (Auto) (2.0-11.0) % Eos % (Auto) (0.0-4.0) % Baso % (Auto) (0.2-1.2) % PT (10.0-12.8) SEC INR (2.0-3.5) Sodium 137 (136-145) mmol/L Potassium 5.0 (3.5-5.1) mmol/L Chloride 105 (98-107) mmol/L Carbon Dioxide 23 (21-32) mmol/L Anion Gap 14.0 (10-20) mmol/L BUN 37 H (7-18) mg/dL Creatinine 1.7 H (0.55-1.02) mg/dL Est Cr Clr Drug Dosing TNP Estimated GFR (MDRD) 30 Glucose 129 H (74-106) mg/dL POC Glucose 473 H* (74-106) mg/dL Calcium 9.9 (8.5-10.1) mg/dL Corrected Calcium 10.46 H (8.5-10.1) mg/dL Total Bilirubin 0.4 (0.2-1.0) mg/dL AST 13 L (15-37) U/L ALT 14 (14-59) U/L Alkaline Phosphatase 89 (46-116) U/L POC Troponin I 0.00 (0.00-0.08) ng/mL Total Protein 7.3 (6.4-8.2) g/dL Albumin 3.3 L (3.4-5.0) g/dL Globulin 4.0 Albumin/Globulin Ratio 0.83 03/14/19 03/14/19 03/15/19 Range/Units 20:02 22:01 06:34 WBC (4.0-10.0) x10^3/uL RBC (4.00-5.50) x10^6/uL Hgb (12.0-16.0) g/dL Hct (33.0-47.0) % MCV (78.0-93.0) fL MCH (26.0-32.0) pg MCHC (32.0-36.0) g/dL RDW Coeff of Gerda (10.0-15.0) % Plt Count (130-400) x10^3/uL Neut % (Auto) (50.0-80.0) % Lymph % (Auto) (25.0-50.0) % Stone % (Auto) (2.0-11.0) % Eos % (Auto) (0.0-4.0) % Baso % (Auto) (0.2-1.2) % PT (10.0-12.8) SEC INR (2.0-3.5) Sodium (136-145) mmol/L Potassium (3.5-5.1) mmol/L Chloride (98-107) mmol/L Carbon Dioxide (21-32) mmol/L Anion Gap (10-20) mmol/L BUN (7-18) mg/dL Creatinine (0.55-1.02) mg/dL Est Cr Clr Drug Dosing Estimated GFR (MDRD) Glucose (74-106) mg/dL POC Glucose 472 H* 376 H 319 H (74-106) mg/dL Calcium (8.5-10.1) mg/dL Corrected Calcium (8.5-10.1) mg/dL Total Bilirubin (0.2-1.0) mg/dL AST (15-37) U/L ALT (14-59) U/L Alkaline Phosphatase (46-116) U/L POC Troponin I (0.00-0.08) ng/mL Total Protein (6.4-8.2) g/dL Albumin (3.4-5.0) g/dL Globulin Albumin/Globulin Ratio 03/15/19 03/15/19 03/15/19 Range/Units 07:16 07:16 07:54 WBC 3.3 L (4.0-10.0) x10^3/uL RBC 4.26 (4.00-5.50) x10^6/uL Hgb 12.8 (12.0-16.0) g/dL Hct 39.5 (33.0-47.0) % MCV 92.7 (78.0-93.0) fL MCH 30.0 (26.0-32.0) pg MCHC 32.4 (32.0-36.0) g/dL RDW Coeff of Gerda 18.6 H (10.0-15.0) % Plt Count 215 (130-400) x10^3/uL Neut % (Auto) 72.0 (50.0-80.0) % Lymph % (Auto) 16.1 L (25.0-50.0) % Stone % (Auto) 11.9 H (2.0-11.0) % Eos % (Auto) 0.0 (0.0-4.0) % Baso % (Auto) 0.0 L (0.2-1.2) % PT (10.0-12.8) SEC INR (2.0-3.5) Sodium 139 (136-145) mmol/L Potassium 4.8 (3.5-5.1) mmol/L Chloride 106 (98-107) mmol/L Carbon Dioxide 22 (21-32) mmol/L Anion Gap 15.8 (10-20) mmol/L BUN 30 H (7-18) mg/dL Creatinine 1.3 H (0.55-1.02) mg/dL Est Cr Clr Drug Dosing 35.69 Estimated GFR (MDRD) 41 Glucose 341 H (74-106) mg/dL POC Glucose 313 H (74-106) mg/dL Calcium 10.3 H (8.5-10.1) mg/dL Corrected Calcium (8.5-10.1) mg/dL Total Bilirubin (0.2-1.0) mg/dL AST (15-37) U/L ALT (14-59) U/L Alkaline Phosphatase (46-116) U/L POC Troponin I (0.00-0.08) ng/mL Total Protein (6.4-8.2) g/dL Albumin (3.4-5.0) g/dL Globulin Albumin/Globulin Ratio 03/15/ Range/Units 10:39 WBC (4.0-10.0) x10^3/uL RBC (4.00-5.50) x10^6/uL Hgb (12.0-16.0) g/dL Hct (33.0-47.0) % MCV (78.0-93.0) fL MCH (26.0-32.0) pg MCHC (32.0-36.0) g/dL RDW Coeff of Gerda (10.0-15.0) % Plt Count (130-400) x10^3/uL Neut % (Auto) (50.0-80.0) % Lymph % (Auto) (25.0-50.0) % Stone % (Auto) (2.0-11.0) % Eos % (Auto) (0.0-4.0) % Baso % (Auto) (0.2-1.2) % PT (10.0-12.8) SEC INR (2.0-3.5) Sodium (136-145) mmol/L Potassium (3.5-5.1) mmol/L Chloride (98-107) mmol/L Carbon Dioxide (21-32) mmol/L Anion Gap (10-20) mmol/L BUN (7-18) mg/dL Creatinine (0.55-1.02) mg/dL Est Cr Clr Drug Dosing Estimated GFR (MDRD) Glucose (74-106) mg/dL POC Glucose 414 H* (74-106) mg/dL Calcium (8.5-10.1) mg/dL Corrected Calcium (8.5-10.1) mg/dL Total Bilirubin (0.2-1.0) mg/dL AST (15-37) U/L ALT (14-59) U/L Alkaline Phosphatase (46-116) U/L POC Troponin I (0.00-0.08) ng/mL Total Protein (6.4-8.2) g/dL Albumin (3.4-5.0) g/dL Globulin Albumin/Globulin Ratio Med Orders - Current: Current Medications Amlodipine Besylate (Norvasc) 2.5 mg PO DAILY [facility] Last Admin: 03/15/19 08:00 Dose: 2.5 mg Artificial Tears (Genteal Mild To Moderate Ophth Soln) 0 ml EYEBOTH Q2H PRN PRN Reason: Dry Eyes Artificial Tears (Genteal Mild To Moderate Ophth Soln) 1 ml EYEBOTH BID [facility] Last Admin: 03/15/19 07:59 Dose: 1 drop Ascorbic Acid (Vitamin C) 500 mg PO DAILY [facility] Last Admin: 03/15/19 08:00 Dose: 500 mg Aspirin (Halfprin) 81 mg PO DAILY [facility] Last Admin: 03/15/19 08:00 Dose: 81 mg Calcium Carbonate (Calcium Carbonate/Vitamin D 1250 Mg-200 Unit) 2 tab PO BEDTIME [facility] Last Admin: 03/14/19 19:46 Dose: 2 tab Carvedilol (Coreg) 3.125 mg PO BIDMEALS [facility] Last Admin: 03/15/19 08:00 Dose: 3.125 mg Duloxetine HCl (Cymbalta) 20 mg PO DAILY [facility] Last Admin: 03/15/19 08:00 Dose: 20 mg Enalapril Maleate (Vasotec) 10 mg PO DAILY [facility] Last Admin: 03/15/19 08:00 Dose: 10 mg Fish Oil (Fish Oil) 3 gm PO DAILY [facility] Last Admin: 03/15/19 07:59 Dose: 3 gm Gabapentin (Neurontin) 900 mg PO BEDTIME [facility] Last Admin: 03/14/19 19:48 Dose: 900 mg Gabapentin (Neurontin) 300 mg PO DAILY [facility] Last Admin: 03/15/19 07:59 Dose: 300 mg Lorazepam (Ativan) 0.5 mg PO BID PRN PRN Reason: Anxiety Nitroglycerin (Nitrostat) 0.4 mg SL ASDIRECTED PRN PRN Reason: Chest Pain Insulin Degludec [ Tresiba Flextouch U- 100] (Own Supply) 0 units SQ DAILY [facility] Last Admin: 03/15/19 08:05 Dose: 13 units Tapentadol [Nucynta] (75mg (Own Supply)) 0 mg PO TID [facility] Last Admin: 03/15/19 07:59 Dose: 75 mg Atorvastatin 80mg (Ptom) 80 each PO BEDTIME [facility] Last Admin: 03/14/19 19:49 Dose: 80 each Insulin Aspart Insulin [Fiasp] Ptom 0 unit SQ TIDMEALS [facility] Last Admin: 03/15/19 07:59 Dose: 3 unit Fesoterodine Fumarate [Toviaz] 4mg (Own Supply) 4 mg PO DAILY [facility] Last Admin: 03/15/19 08:00 Dose: 4 mg Ondansetron HCl (Zofran Odt) 4 mg PO Q6H PRN PRN Reason: nausea, able to take PO Discontinued Medications Amlodipine Besylate (Norvasc) 2.5 mg PO DAILY [facility] Atorvastatin Calcium (Lipitor) 80 mg PO BEDTIME [facility] Carvedilol (Coreg) 3.125 mg PO BIDMEALS [facility] Duloxetine HCl (Cymbalta) 20 mg PO DAILY [facility] Enalapril Maleate (Vasotec) 10 mg PO DAILY [facility] Gabapentin (Neurontin) 300 mg PO DAILY [facility] Gabapentin (Neurontin) 600 mg PO BEDTIME [facility] Lorazepam (Ativan) 0.5 mg PO BID PRN PRN Reason: Anxiety Fesoterodine Fumarate [Toviaz] 4mg (Own Supply) 4 mg PO DAILY [facility] Insulin Aspart (Insulin [Fiasp]) 0 unit SQ TIDMEALS LAURA - Exam General: Reports: Alert, Oriented HEENT: Reports: Mucous Membr. Moist/[place]: Reports: Supple Lungs: Reports: Clear to Auscultation, Normal Respiratory Effort Cardiovascular: Reports: Regular Rate, Regular Rhythm GI/Abdominal Exam: Normal Bowel Sounds, Soft, Non-Tender Extremities: Normal Inspection, No Pedal Edema Skin: Reports: Warm, Dry Neurological: Reports: No New Focal Deficit
== END 2019-03-15 11:30 | disposition home or self-care (01) ==
LOC: VM.ED 11:14 → VM.MS 12:38
PROVIDERS: ADMIT Nurse Practitioner; ATTEND Nurse Practitioner
DX: E10.649 Type 1 diabetes mellitus with hypoglycemia without coma (principal); S00.83XA Contusion of other part of head, initial encounter; R55 Syncope and collapse; K21.9 Gastro-esophageal reflux disease without esophagitis; I10 Essential (primary) hypertension; F41.9 Anxiety disorder, unspecified; W18.30XA Fall on same level, unspecified, initial encounter; Y93.89 Activity, other specified; Z79.02 Long term (current) use of antithrombotics/antiplatelets; Z91.018 Allergy to other foods; Z88.5 Allergy status to narcotic agent; Z91.010 Allergy to peanuts; Z88.0 Allergy status to penicillin; Z88.8 Allergy status to other drugs, medicaments and biological substances; Z79.82 Long term (current) use of aspirin; Z79.899 Other long term (current) drug therapy; Z79.4 Long term (current) use of insulin; Z79.01 Long term (current) use of anticoagulants
CPT/HCPCS: 36415; 70450; 72125; 80048; 80053; 82962; 84484; 85025; 85610; 93005; 99217; 99220; 99285-25; A9270-GY; G0378

== ENCOUNTER 2019-08-19 12:12 | Emergency (ER) | payer MEDICARE, OTHER ==
[2019-08-19 12:25] VITALS: BP 125/32; PULSE 60
[2019-08-19 13:22] LABS: CHLORIDE,CL 92 mmol/L (98-107)
[2019-08-19 13:23] LABS: ANION GAP 16.1 mmol/L (10-20); SODIUM,NA 125 mmol/L (136-145)
[2019-08-19] MEDS ORDERED: Sodium Chloride 0.9% 10 ML Syringe FLUSH PRN (13:30)
[2019-08-19] MEDS: Sodium Chloride 0.9% 1,000 ML IV ONE (13:51)
--- NOTE | 2019-08-19 14:29 | EDM.PDOC ---
ED HPI GENERAL MEDICAL PROBLEM - General Chief Complaint: Diabetic Complaint Stated Complaint: BLOOD SUGARS ARE HIGH Time Seen by Provider: 08/19/19 12:18 Source of Information: Reports: Patient, Provider History Limitations: Reports: No Limitations - History of Present Illness INITIAL COMMENTS - FREE TEXT/NARRATIVE: Pt. presents to ER with complaints of hyperglycemia. She has been experiencing this for over a week. She was diagnosed with UTI yesterday and is currently on levaquin. Denies any fever or chills. Her blood glucose in clinic yesterday was 380mg/dl. Denies any nausea, vomiting, or diarrhea. No cough, chest pain, or shortness of breath. Pt. contacted her product management specialist who advised that the patient come to ER today , as her blood sugar has been in the 300-450 range for some time and she is concerned that the patient may be in DKA. Pt. is on Tresiba 13u daily and Fiasp 1 unit for every 15 carbs per meal, max dose 30U/day. Onset: Today Onset Date: 08/19/19 Location: Reports: Generalized - Related Data Allergies Allergy/AdvReac Type Severity Reaction Status Date / Time banana Allergy Other Verified 08/19/19 12:27 Penicillins Allergy Hives Verified 08/19/19 12:27 tramadol Allergy Hives Verified 08/19/19 12:27 morphine AdvReac Nausea and Verified 08/19/19 12:27 Vomiting peanut AdvReac Stomach Verified 08/19/19 12:27 Upset pregabalin [From Lyrica] AdvReac Fever Verified 08/19/19 12:27 Home Meds: Home Meds Aspirin [Halfprin] 81 mg PO DAILY 05/17/14 [History] Fish Oil/[place]-3 Fatty Acids [Fish Oil 1,000 MG] 3 gm PO DAILY 05/17/14 [History ] Gabapentin [Neurontin] 300 mg PO DAILY 05/17/14 [History] Ascorbate Calcium [Vitamin C] 500 mg PO DAILY 07/15/15 [History] Calcium Carbonate/Vitamin D3 [Caltrate 600 + D Soft Chew Tab] 2 tab PO BEDTIME 07/15/15 [History] Carboxymethylcellulose [Methocel E 4 M] 1 drop EYEBOTH Q2H PRN 07/15/15 [History ] LORazepam [Ativan] 1 mg PO BID PRN 07/15/15 [History] Nitroglycerin [Nitrostat] 0.4 mg SL ASDIRECTED PRN 08/06/15 [History] amLODIPine [Norvasc] 2.5 mg PO DAILY 08/06/15 [History] atorvaSTATin [Lipitor] 80 mg PO BEDTIME 08/06/15 [History] carvediloL [Coreg] 3.125 mg PO BIDMEALS 08/06/15 [History] Enalapril Maleate [Vasotec] 10 mg PO DAILY 08/19/16 [History] Glucagon,Human Recombinant [Glucagon Emergency Kit] 1 mg IJ ASDIRECTED 08/19/16 [History] Insulin Degludec [Tresiba Flextouch U-100] 13 units SQ DAILY 04/28/17 [History] DULoxetine [Cymbalta] 20 mg PO DAILY 03/14/19 [History] Fesoterodine Fumarate [Toviaz] 4 mg PO DAILY 03/14/19 [History] Gabapentin [Neurontin] 600 mg PO BEDTIME 03/14/19 [History] Insulin Aspart (Niacinamide) [Fiasp Penfill 100 Unit/ml Cart] 1 unit SQ ASDIRECTED 03/14/19 [History] Tapentadol HCl [Nucynta] 75 mg PO TID 03/14/19 [History] cycloSPORINE [Restasis Multidose] 1 drop EYEBOTH BID 03/14/19 [History] Clopidogrel Bisulfate [Plavix] 75 mg PO DAILY 08/19/19 [History] Past Medical History Cardiovascular History: Reports: Hypertension Other Cardiovascular History: NSTEMI. 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: Neurological History: Reports: Other (See Below) Other Neuro History: Polymyalgia Rheumatica Psychiatric History: Reports: Anxiety Endocrine/Metabolic History: Reports: Diabetes, Type I Hematologic History: Reports: Anemia Oncologic (Cancer) History: Reports: Lung - Past Surgical History HEENT Surgical History: Reports: Cataract Surgery Cardiovascular Surgical History: Reports: Coronary Artery Stent Female Surgical History: Reports: Section, Cystectomy Musculoskeletal Surgical History: Reports: Hip Replacement Social & Family History - Family History Family Medical History: Noncontributory - Tobacco Use Smoking Status *Q: Never Smoker - Caffeine Use Caffeine Use: Reports: Tea ED ROS GENERAL - Review of Systems Review Of Systems: See Below Constitutional: Reports: No Symptoms HEENT: Reports: No Symptoms Respiratory: Reports: No Symptoms Cardiovascular: Reports: No Symptoms Endocrine: Reports: Fatigue, High Glucose GI/Abdominal: Reports: No Symptoms : Reports: No Symptoms Musculoskeletal: Reports: No Symptoms Skin: Reports: No Symptoms Neurological: Reports: No Symptoms Psychiatric: Reports: No Symptoms Hematologic/Lymphatic: Reports: No Symptoms Immunologic: Reports: No Symptoms ED EXAM GENERAL NO PERIP PULSE - Physical Exam Exam: See Below Exam Limited By: No Limitations General Appearance: Alert, WD/WN Nose: Normal Inspection, Normal Mucosa, No Blood Throat/Mouth: Normal Inspection, Normal Lips, Normal Teeth, Normal Gums, Normal Oropharynx, Normal Voice, No Airway Compromise Head: Atraumatic, Normocephalic Neck: Normal Inspection, Supple, Non-Tender, Full Range of Motion Respiratory/Chest: No Respiratory Distress, Lungs Clear, Normal Breath Sounds, No Accessory Muscle Use, Chest Non-Tender Cardiovascular: Normal Peripheral Pulses, Regular Rate, Rhythm, No Edema, No Gallop, No JVD, No Murmur, No Rub GI/Abdominal: Soft, Non-Tender, No Organomegaly, No Distention, No Mass (Female) Exam: Deferred Rectal (Female) Exam: Deferred Back Exam: Normal Inspection, Full Range of Motion Extremities: Normal Inspection, Normal Range of Motion, Non-Tender, No Pedal Edema, Normal Capillary Refill Neurological: Alert, Oriented, CN II-XII Intact, Normal Cognition, Normal Gait, Normal Reflexes, No Motor/Sensory Deficits Psychiatric: Normal Affect, Normal Mood Skin Exam: Warm, Dry, Intact, No Rash, Pallor Lymphatic: No Adenopathy Course - Vital Signs Last Recorded V/S: Last Vital Signs Temp 36.1 C 08/19/19 12:18 Pulse 60 08/19/19 12:18 Resp 16 08/19/19 12:18 BP 125/32 L 08/19/19 12:18 Pulse Ox 98 08/19/19 12:18 - Orders/Labs/Meds Orders: Active Orders 24 hr Category Date Time Status Blood Glucose Check, Bedside [RC] ONETIME Care 08/19/19 12:32 Active CULTURE URINE [RM] Stat Lab 08/19/19 13:02 Received Sodium Chloride 0.9% [Saline Flush] Med 08/19/19 13:30 Active 10 ml FLUSH ASDIRECTED PRN Peripheral IV Insertion Adult [OM.PC] Routine Oth 08/19/19 13:30 Ordered Medication Orders Sodium Chloride (Saline Flush) 10 ml FLUSH ASDIRECTED PRN PRN Reason: Keep Vein Open Labs: Laboratory Tests 08/19/19 08/19/19 08/19/19 Range/Units 12:35 12:47 12:47 WBC 5.0 (4.0-10.0) x10^3/uL RBC 2.88 L (4.00-5.50) x10^6/uL Hgb 9.4 L D (12.0-16.0) g/dL Hct 26.1 L (33.0-47.0) % MCV 90.6 (78.0-93.0) fL MCH 32.6 H (26.0-32.0) pg MCHC 36.0 (32.0-36.0) g/dL RDW Coeff of Gerda 11.0 (10.0-15.0) % Plt Count 275 (130-400) x10^3/uL Neut % (Auto) 79.5 (50.0-80.0) % Lymph % (Auto) 14.7 L (25.0-50.0) % Dale % (Auto) 5.6 (2.0-11.0) % Eos % (Auto) 0.0 (0.0-4.0) % Baso % (Auto) 0.2 (0.2-1.2) % PT 10.1 (9.5-12.3) SEC INR 0.9 L (2.0-3.5) POC ABG pH (7.35-7.45) POC ABG pCO2 (35-45) mmHG POC ABG pO2 (80-105) mmHG POC ABG HCO3 (22-26) mmol/L POC ABG Total CO2 (23-27) mmol/L POC ABG O2 Sat (95-98) % POC ABG Base Excess (-2-3) mmol/L POC FiO2 Sodium (136-145) mmol/L Potassium (3.5-5.1) mmol/L Chloride (98-107) mmol/L Carbon Dioxide (21-32) mmol/L Anion Gap (10-20) mmol/L BUN (7-18) mg/dL Creatinine (0.55-1.02) mg/dL Est Cr Clr Drug Dosing Estimated GFR (MDRD) Glucose (74-106) mg/dL POC Glucose 284 H (74-106) mg/dL Lactic Acid (0.4-2.0) mmol/L Calcium (8.5-10.1) mg/dL Corrected Calcium (8.5-10.1) mg/dL Magnesium (1.8-2.4) mg/dL Total Bilirubin (0.2-1.0) mg/dL AST (15-37) U/L ALT (14-59) U/L Alkaline Phosphatase (46-116) U/L C-Reactive Protein (<=0.9) mg/dL Total Protein (6.4-8.2) g/dL Albumin (3.4-5.0) g/dL Globulin Albumin/Globulin Ratio Urine Color (YELLOW) Urine Appearance (CLEAR) Urine pH (5.0-8.0) Ur Specific Damon Urine Protein (NEGATIVE) mg/dL Urine Glucose (UA) (NEGATIVE) mg/dL Urine Ketones (NEGATIVE) mg/dL Urine Occult Blood (NEGATIVE) Urine Nitrite (NEGATIVE) Urine Bilirubin (NEGATIVE) Urine Urobilinogen (0.2) EU/dL Ur Leukocyte Esterase (NEGATIVE) Urine RBC (NOT SEEN) /HPF Urine WBC (NOT SEEN) /HPF Ur Squamous Epith Cells (NEGATIVE) /HPF Urine Bacteria (NEGATIVE) /HPF Urine Mucus (NEGATIVE) /LPF 08/19/19 08/19/19 08/19/19 Range/Units 12:47 12:47 12:58 WBC (4.0-10.0) x10^3/uL RBC (4.00-5.50) x10^6/uL Hgb (12.0-16.0) g/dL Hct (33.0-47.0) % MCV (78.0-93.0) fL MCH (26.0-32.0) pg MCHC (32.0-36.0) g/dL RDW Coeff of Gerda (10.0-15.0) % Plt Count (130-400) x10^3/uL Neut % (Auto) (50.0-80.0) % Lymph % (Auto) (25.0-50.0) % Dale % (Auto) (2.0-11.0) % Eos % (Auto) (0.0-4.0) % Baso % (Auto) (0.2-1.2) % PT (9.5-12.3) SEC INR (2.0-3.5) POC ABG pH 7.316 L (7.35-7.45) POC ABG pCO2 33 L (35-45) mmHG POC ABG pO2 129 H (80-105) mmHG POC ABG HCO3 17 L (22-26) mmol/L POC ABG Total CO2 18 L (23-27) mmol/L POC ABG O2 Sat 99 H (95-98) % POC ABG Base Excess -9 L (-2-3) mmol/L POC FiO2 0.21 Sodium 125 L* (136-145) mmol/L Potassium 5.1 (3.5-5.1) mmol/L Chloride 92 L (98-107) mmol/L Carbon Dioxide 22 (21-32) mmol/L Anion Gap 16.1 (10-20) mmol/L BUN 34 H (7-18) mg/dL Creatinine 1.2 H (0.55-1.02) mg/dL Est Cr Clr Drug Dosing TNP Estimated GFR (MDRD) 45 Glucose 275 H (74-106) mg/dL POC Glucose (74-106) mg/dL Lactic Acid 1.1 (0.4-2.0) mmol/L Calcium 9.8 (8.5-10.1) mg/dL Corrected Calcium 9.72 (8.5-10.1) mg/dL Magnesium 1.8 (1.8-2.4) mg/dL Total Bilirubin 0.5 (0.2-1.0) mg/dL AST 8 L (15-37) U/L ALT 16 (14-59) U/L Alkaline Phosphatase 111 (46-116) U/L C-Reactive Protein 0.8 (<=0.9) mg/dL Total Protein 7.6 (6.4-8.2) g/dL Albumin 4.1 (3.4-5.0) g/dL Globulin 3.5 Albumin/Globulin Ratio 1.17 Urine Color (YELLOW) Urine Appearance (CLEAR) Urine pH (5.0-8.0) Ur Specific Damon Urine Protein (NEGATIVE) mg/dL Urine Glucose (UA) (NEGATIVE) mg/dL Urine Ketones (NEGATIVE) mg/dL Urine Occult Blood (NEGATIVE) Urine Nitrite (NEGATIVE) Urine Bilirubin (NEGATIVE) Urine Urobilinogen (0.2) EU/dL Ur Leukocyte Esterase (NEGATIVE) Urine RBC (NOT SEEN) /HPF Urine WBC (NOT SEEN) /HPF Ur Squamous Epith Cells (NEGATIVE) /HPF Urine Bacteria (NEGATIVE) /HPF Urine Mucus (NEGATIVE) /LPF 08/19/19 Range/Units 13:02 WBC (4.0-10.0) x10^3/uL RBC (4.00-5.50) x10^6/uL Hgb (12.0-16.0) g/dL Hct (33.0-47.0) % MCV (78.0-93.0) fL MCH (26.0-32.0) pg MCHC (32.0-36.0) g/dL RDW Coeff of Gerda (10.0-15.0) % Plt Count (130-400) x10^3/uL Neut % (Auto) (50.0-80.0) % Lymph % (Auto) (25.0-50.0) % Dale % (Auto) (2.0-11.0) % Eos % (Auto) (0.0-4.0) % Baso % (Auto) (0.2-1.2) % PT (9.5-12.3) SEC INR (2.0-3.5) POC ABG pH (7.35-7.45) POC ABG pCO2 (35-45) mmHG POC ABG pO2 (80-105) mmHG POC ABG HCO3 (22-26) mmol/L POC ABG Total CO2 (23-27) mmol/L POC ABG O2 Sat (95-98) % POC ABG Base Excess (-2-3) mmol/L POC FiO2 Sodium (136-145) mmol/L Potassium (3.5-5.1) mmol/L Chloride (98-107) mmol/L Carbon Dioxide (21-32) mmol/L Anion Gap (10-20) mmol/L BUN (7-18) mg/dL Creatinine (0.55-1.02) mg/dL Est Cr Clr Drug Dosing Estimated GFR (MDRD) Glucose (74-106) mg/dL POC Glucose (74-106) mg/dL Lactic Acid (0.4-2.0) mmol/L Calcium (8.5-10.1) mg/dL Corrected Calcium (8.5-10.1) mg/dL Magnesium (1.8-2.4) mg/dL Total Bilirubin (0.2-1.0) mg/dL AST (15-37) U/L ALT (14-59) U/L Alkaline Phosphatase (46-116) U/L C-Reactive Protein (<=0.9) mg/dL Total Protein (6.4-8.2) g/dL Albumin (3.4-5.0) g/dL Globulin Albumin/Globulin Ratio Urine Color Light yellow (YELLOW) Urine Appearance Slightly cloudy H (CLEAR) Urine pH 5.5 (5.0-8.0) Ur Specific Damon 1.010 Urine Protein Negative (NEGATIVE) mg/dL Urine Glucose (UA) Negative (NEGATIVE) mg/dL Urine Ketones Negative (NEGATIVE) mg/dL Urine Occult Blood Negative (NEGATIVE) Urine Nitrite Negative (NEGATIVE) Urine Bilirubin Negative (NEGATIVE) Urine Urobilinogen 0.2 (0.2) EU/dL Ur Leukocyte Esterase Moderate H (NEGATIVE) Urine RBC 0-5 (NOT SEEN) /HPF Urine WBC 5-10 H (NOT SEEN) /HPF Ur Squamous Epith Cells Few H (NEGATIVE) /HPF Urine Bacteria Few H (NEGATIVE) /HPF Urine Mucus Occasional H (NEGATIVE) /LPF Meds: Medications Generic Name Dose Route Start Last Admin Trade Name Freq PRN Reason Stop Dose Admin Sodium Chloride 10 ml 08/19/19 13:30 Saline Flush FLUSH ASDIRECTED PRN Keep Vein Open Discontinued Medications Generic Name Dose Route Start Last Admin Trade Name Freq PRN Reason Stop Dose Admin Sodium Chloride 1,000 mls @ 1,000 mls/hr 08/19/19 13:30 08/19/19 13:51 Normal Saline IV 08/19/19 14:29 1,000 mls/hr .BOLUS ONE Administration Insulin Human Lispro 5 unit 08/19/19 14:11 Humalog SUBCUT 08/19/19 14:12 ONETIME ONE - Re-Assessments/Exams Free Text/Narrative Re-Assessment/Exam: 08/19/19 14:32 Spoke with both the patient's PCP, Dr. Rodriguez, and Dr. Piedra. Pt. was given normal saline 1 liter in ER. She was given humalog 5U sc. Pt. did not have ketones in her urine, and bicarb was within normal limits, so this will be handled on an outpatient basis. Departure - Departure Time of Disposition: 14:45 Disposition: Home, Self-Care 01 Clinical Impression: Hyperglycemia, Hyponatremia - Discharge Information Instructions: Hyperglycemia, [id number] Referrals: Thom Rodriguez MD [Primary Care Provider] - Forms: ED Department Discharge Additional Instructions: Home to rest. Stop Fiasp. Start Humalog 1 unit of insulin for every 15 grams of carbohydrates. In addition , take an extra 1 unit for every 50mg/dl your blood sugar is over 150. Continue with your basal insulin at the current dosage. Check your blood sugar every 4 hours. Keep a log. Follow-up tomorrow or with Dr. Rodriguez Drink plenty of fluids. You can also take sugar free energy drinks, but make sure that there is no sugar in them. Sepsis Event Note - Evaluation Sepsis Screening Result: No Definite Risk - Focused Exam Vital Signs: Vital Signs Temp Pulse Resp BP Pulse Ox 08/19/19 12:18 36.1 C 60 16 125/32 L 98 Date Exam was Performed: 08/19/19 Time Exam was Performed: 14:31 - My Orders Last 24 Hours: My Active Orders 08/19/19 12:32 Blood Glucose Check, Bedside [RC] ONETIME 08/19/19 13:02 CULTURE URINE [RM] Stat 08/19/19 13:30 Sodium Chloride 0.9% [Saline Flush] 10 ml FLUSH ASDIRECTED PRN Peripheral IV Insertion Adult [OM.PC] Routine - Assessment/Plan Last 24 Hours: My Active Orders 08/19/19 12:32 Blood Glucose Check, Bedside [RC] ONETIME 08/19/19 13:02 CULTURE URINE [RM] Stat 08/19/19 13:30 Sodium Chloride 0.9% [Saline Flush] 10 ml FLUSH ASDIRECTED PRN Peripheral IV Insertion Adult [OM.PC] Routine Plan: Home to rest. Stop Fiasp. Start Humalog 1 unit of insulin for every 15 grams of carbohydrates. In addition , take an extra 1 unit for every 50mg/dl your blood sugar is over 150. Continue with your basal insulin at the current dosage. Check your blood sugar every 4 hours. Keep a log. Follow-up tomorrow or with Dr. Rodriguez Drink plenty of fluids. You can also take sugar free energy drinks, but make sure that there is no sugar in them.
[2019-08-19] MEDS: Insulin Lispro 100 Units/ML 3 ML Vial SUBCUT ONE (14:30)
== END 2019-08-19 15:23 | disposition home or self-care (01) ==
LOC: VM.ED 12:12
DX: E10.65 Type 1 diabetes mellitus with hyperglycemia (principal); E87.1 Hypo-osmolality and hyponatremia; I10 Essential (primary) hypertension; I12.9 Hypertensive chronic kidney disease with stage 1 through stage 4 chronic kidney disease, or unspecified chronic kidney disease; E10.22 Type 1 diabetes mellitus with diabetic chronic kidney disease; N18.9 Chronic kidney disease, unspecified; F41.9 Anxiety disorder, unspecified; Z91.018 Allergy to other foods; Z88.0 Allergy status to penicillin; Z88.5 Allergy status to narcotic agent; Z91.010 Allergy to peanuts; Z88.8 Allergy status to other drugs, medicaments and biological substances; Z79.82 Long term (current) use of aspirin; Z79.02 Long term (current) use of antithrombotics/antiplatelets; Z79.899 Other long term (current) drug therapy
CPT/HCPCS: 36415; 36600; 80053; 81001; 82803; 82962; 83605; 83735; 85025; 85610; 86140; 87086; 87088; 87186; 96360; 99284-25; 99284-GF; J7030

== ENCOUNTER 2019-11-25 17:13 | Emergency (ER) | payer MEDICARE, OTHER ==
--- NOTE | 2019-11-25 17:36 | EDM.PDOC ---
ED HPI GENERAL MEDICAL PROBLEM - General Stated Complaint: LOW BL SUGAR Time Seen by Provider: 11/25/19 17:25 Source of Information: Reports: Patient, EMS - History of Present Illness INITIAL COMMENTS - FREE TEXT/NARRATIVE: Rosy is a 64 y/o female who is brought to the ER by [facility] after she had a hypoglycemic incident. Her found her lying on the floor in the bathroom. She was foaming at the mouth and then a bit combative so her gave her Glucagon 1mg SQ...she did really wake up very fast. First Responders in [place] got to her home and checked the blood sugar and reported it as 15 on scene. [facility] arrived to her home and then gave her D50 IV and she did become alert in about 2-3 minutes. Following the D50 and the patient becoming more alert, her blood sugar was 180 by paramedics. Patient does not really recall what happened prior to the incident. She reports feeling well today and even had a clinic visit with her PCP earlier in the day. - Related Data Allergies Allergy/AdvReac Type Severity Reaction Status Date / Time banana Allergy Other Verified 11/25/19 17:59 Penicillins Allergy Hives Verified 11/25/19 17:59 tramadol Allergy Hives Verified 11/25/19 17:59 morphine AdvReac Nausea and Verified 11/25/19 17:59 Vomiting peanut AdvReac Stomach Verified 11/25/19 17:59 Upset pregabalin [From Lyrica] AdvReac Fever Verified 11/25/19 17:59 Home Meds: Home Meds Aspirin [Halfprin] 81 mg PO DAILY 05/17/14 [History] Fish Oil/[place]-3 Fatty Acids [Fish Oil 1,000 MG] 3 gm PO DAILY 05/17/14 [History] Gabapentin [Neurontin] 300 mg PO DAILY 05/17/14 [History] Ascorbate Calcium [Vitamin C] 500 mg PO DAILY 07/15/15 [History] Calcium Carbonate/Vitamin D3 [Caltrate 600 + D Soft Chew Tab] 2 tab PO BEDTIME 07/15/15 [History] Carboxymethylcellulose [Methocel E 4 M] 1 drop EYEBOTH Q2H PRN 07/15/15 [History] LORazepam [Ativan] 1 mg PO BID PRN 07/15/15 [History] Nitroglycerin [Nitrostat] 0.4 mg SL ASDIRECTED PRN 08/06/15 [History] amLODIPine [Norvasc] 2.5 mg PO DAILY 08/06/15 [History] atorvaSTATin [Lipitor] 80 mg PO BEDTIME 08/06/15 [History] carvediloL [Coreg] 3.125 mg PO BIDMEALS 08/06/15 [History] Enalapril Maleate [Vasotec] 10 mg PO DAILY 08/19/16 [History] Glucagon,Human Recombinant [Glucagon Emergency Kit] 1 mg IJ ASDIRECTED 08/19/16 [History] Insulin Degludec [Tresiba Flextouch U-100] 6 units SQ DAILY 04/28/17 [History] DULoxetine [Cymbalta] 20 mg PO DAILY 03/14/19 [History] Fesoterodine Fumarate [Toviaz] 4 mg PO DAILY 03/14/19 [History] Gabapentin [Neurontin] 600 mg PO BEDTIME 03/14/19 [History] Insulin Aspart (Niacinamide) [Fiasp Penfill 100 Unit/ml Cart] 1 unit SQ ASDIRECTED 03/14/19 [History] Tapentadol HCl [Nucynta] 75 mg PO TID 03/14/19 [History] cycloSPORINE [Restasis Multidose] 1 drop EYEBOTH BID 03/14/19 [History] Clopidogrel Bisulfate [Plavix] 75 mg PO DAILY 08/19/19 [History] Dextrose [Glucose] 4 gm PO ASDIRECTED PRN 11/25/19 [History] Nitrofurantoin Monohyd/M-Cryst [Macrobid 100 mg Capsule] 100 mg PO BID #14 capsule 11/25/19 [Rx] Omeprazole 20 mg PO DAILY 11/25/19 [History] Past Medical History Cardiovascular History: Reports: Hypertension Other Cardiovascular History: NSTEMI. 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: Neurological History: Reports: Other (See Below) Other Neuro History: Polymyalgia Rheumatica Psychiatric History: Reports: Anxiety Endocrine/Metabolic History: Reports: Diabetes, Type I Hematologic History: Reports: Anemia Oncologic (Cancer) History: Reports: Lung - Past Surgical History HEENT Surgical History: Reports: Cataract Surgery Cardiovascular Surgical History: Reports: Coronary Artery Stent Female Surgical History: Reports: Section, Cystectomy Musculoskeletal Surgical History: Reports: Hip Replacement Social & Family History - Family History Family Medical History: Noncontributory - Caffeine Use Caffeine Use: Reports: Tea Review of Systems - Review of Systems Review Of Systems: See Below Constitutional: Reports: No Symptoms Eyes: Reports: No Symptoms Ears: Reports: No Symptoms Nose: Reports: No Symptoms Mouth/Throat: Reports: No Symptoms Respiratory: Reports: No Symptoms Cardiovascular: Reports: No Symptoms GI/Abdominal: Reports: No Symptoms Genitourinary: Reports: No Symptoms Musculoskeletal: Reports: No Symptoms Skin: Reports: Diaphoresis (mild) Neurological: Reports: No Symptoms Psychiatric: Reports: No Symptoms ED EXAM, GENERAL - Physical Exam Exam: See Below General Appearance: Alert, WD/WN, No Apparent Distress (Elderly female, NAD. Lying quietly on the ER cart.) Eye Exam: Bilateral Eye: PERRL Ears: Normal External Exam, Normal Canal, Hearing Grossly Normal, Normal TMs Nose: Normal Inspection, Normal Mucosa Throat/Mouth: Normal Lips, Normal Oropharynx, Normal Voice, Other (Some missing teeth.) Head: Atraumatic, Normocephalic Neck: Normal Inspection, Supple Respiratory/Chest: No Respiratory Distress, Lungs Clear Cardiovascular: Regular Rate, Rhythm, No Edema, No Murmur GI/Abdominal: Normal Bowel Sounds, Soft, Non-Tender, No Distention (Female) Exam: Deferred Rectal (Female) Exam: Deferred Back Exam: Normal Inspection Extremities: Normal Inspection, Normal Range of Motion, Normal Capillary Refill Neurological: Alert, Oriented, CN II-XII Intact, Normal Cognition, No Motor/Sensory Deficits Psychiatric: Normal Affect, Normal Mood Skin Exam: Warm, Intact, Normal Color, No Rash (Slightly tacky) Course - Vital Signs Text/Narrative:: The patient was seen by the QA CONSULTANT. She denied any sx at this time. Labs ordered. 1814 Reviewed labs. Note +nitrates in UA. Will treat with Ceftriaxone 1 gm IVP, then start her on Macrobid 100mg BID x 7 days. - Orders/Labs/Meds Orders: Active Orders 24 hr Category Date Time Status CBC WITH AUTO DIFF [HEME] Stat Lab 11/25/19 17:30 Ordered COMPREHENSIVE METABOLIC PN,CMP [CHEM] Stat Lab 11/25/19 17:30 Ordered MAGNESIUM [CHEM] Stat Lab 11/25/19 17:30 Ordered UA RFX SHANNON AND CULT IF INDIC [URIN] Stat Lab 11/25/19 17:30 Ordered Departure - Departure Time of Disposition: 18:34 Disposition: Home, Self-Care 01 Condition: Good Clinical Impression: UTI (urinary tract infection), Hypoglycemia - Discharge Information *PRESCRIPTION DRUG MONITORING PROGRAM REVIEWED*: Not Applicable *COPY OF PRESCRIPTION DRUG MONITORING REPORT IN PATIENT POLO: Not Applicable Prescriptions: Nitrofurantoin Monohyd/M-Cryst [Macrobid 100 mg Capsule] 100 mg PO BID #14 capsule Instructions: Hypoglycemia, Urinary Tract Infection, Adult, Preventing Hypoglycemia Additional Instructions: -Macrobid 100mg oral twice daily x 7 days #14(Rx) -screen printing supervisor your prescription tomorrow and start the oral antibiotics. You were given 1 IV dose tonight in the ER. -A UTI or any infection can cause fluctuations in your blood sugars. Make sure y ou are staying well hydrated and eating regularly. -Be sure to check your blood sugar a bit more often for the next couple days. -Hold your sliding scale insulin or the next couple days until you are on the antibiotics a couple days. If your sugars continue to run low, please call Dr Scotty Mclean to adjust your meds. -Follow up with your PCP if you are not better or return to the ER for any miriam rns. - My Orders Last 24 Hours: My Active Orders 11/25/19 17:30 CBC WITH AUTO DIFF [HEME] Stat COMPREHENSIVE METABOLIC PN,CMP [CHEM] Stat MAGNESIUM [CHEM] Stat UA RFX SHANNON AND CULT IF INDIC [URIN] Stat - Assessment/Plan Last 24 Hours: My Active Orders 11/25/19 17:30 CBC WITH AUTO DIFF [HEME] Stat COMPREHENSIVE METABOLIC PN,CMP [CHEM] Stat MAGNESIUM [CHEM] Stat UA RFX SHANNON AND CULT IF INDIC [URIN] Stat
[2019-11-25 18:04] VITALS: BP 153/90; PULSE 74
[2019-11-25] MEDS ORDERED: cefTRIAXone 1 GM Vial IVPUSH ONE (18:20)
[2019-11-25 18:26] LABS: ANION GAP 19.1 mmol/L (10-20)
[2019-11-25] MEDS ORDERED: Sodium Chloride 0.9% 500 ML IV ONE (18:40)
[2019-11-25] MEDS ORDERED: Sodium Chloride 0.9% 1,000 ML IV ONE (18:54)
== END 2019-11-25 19:57 | disposition home or self-care (01) ==
LOC: VM.ED 17:13
DX: E10.649 Type 1 diabetes mellitus with hypoglycemia without coma (principal); N39.0 Urinary tract infection, site not specified; E10.22 Type 1 diabetes mellitus with diabetic chronic kidney disease; N18.9 Chronic kidney disease, unspecified; F41.9 Anxiety disorder, unspecified; K21.9 Gastro-esophageal reflux disease without esophagitis; Z88.0 Allergy status to penicillin; Z91.018 Allergy to other foods; Z91.010 Allergy to peanuts; Z88.5 Allergy status to narcotic agent; Z88.8 Allergy status to other drugs, medicaments and biological substances; Z79.82 Long term (current) use of aspirin; Z79.899 Other long term (current) drug therapy; Z95.5 Presence of coronary angioplasty implant and graft; Z79.02 Long term (current) use of antithrombotics/antiplatelets
CPT/HCPCS: 36415; 80053; 81001; 83735; 85025; 87086; 87088; 87186; 96361; 96374; 99284; 99285-25; J0696; J7030

== ENCOUNTER 2023-07-21 10:36 | Emergency (ER) | payer MEDICARE, OTHER ==
[2023-07-21 10:46] VITALS: BP 171/52; PULSE 75
== END 2023-07-21 12:07 | disposition home or self-care (01) ==
LOC: VM.ED 10:36
DX: L03.113 Cellulitis of right upper limb (principal); S60.511D Abrasion of right hand, subsequent encounter; I10 Essential (primary) hypertension; E10.9 Type 1 diabetes mellitus without complications; Z91.018 Allergy to other foods; Z88.0 Allergy status to penicillin; Z88.5 Allergy status to narcotic agent; Z88.6 Allergy status to analgesic agent; Z91.010 Allergy to peanuts; Z88.8 Allergy status to other drugs, medicaments and biological substances; Z79.82 Long term (current) use of aspirin; Z79.899 Other long term (current) drug therapy; Z79.4 Long term (current) use of insulin; W55.03XD Scratched by cat, subsequent encounter
CPT/HCPCS: 99283

== ENCOUNTER 2024-06-20 07:42 | Day surgery (SDC) | payer MEDICARE, OTHER ==
[~2024-06-20 07:42] MED LIST: Lactated Ringers 1,000 ML IV SCH
[2024-06-20] MEDS: Lactated Ringers 1,000 ML IV SCH (07:56)
[2024-06-20] MEDS ORDERED: Propofol 200 MG/20 ML SDV ONE (08:59)
[2024-06-20] MEDS ORDERED: fentaNYL 100 MCG/2 ML SDV ONE (09:00)
[2024-06-20] MEDS ORDERED: Sodium Chloride 0.9% 10 ML Syringe FLUSH PRN (09:22)
[2024-06-20 10:42] VITALS: BP 134/75; PULSE 56
== END 2024-06-20 11:23 | disposition home or self-care (01) ==
LOC: VM.SDS 07:42
PROVIDERS: ATTEND Student in an Organized Health Care Education/Training Program
DX: Z12.11 Encounter for screening for malignant neoplasm of colon (principal); R19.5 Other fecal abnormalities; D12.3 Benign neoplasm of transverse colon; K62.1 Rectal polyp; I12.9 Hypertensive chronic kidney disease with stage 1 through stage 4 chronic kidney disease, or unspecified chronic kidney disease; E11.22 Type 2 diabetes mellitus with diabetic chronic kidney disease; N18.4 Chronic kidney disease, stage 4 (severe); Z79.899 Other long term (current) drug therapy; Z88.0 Allergy status to penicillin; Z91.010 Allergy to peanuts; Z88.5 Allergy status to narcotic agent; Z88.8 Allergy status to other drugs, medicaments and biological substances
CPT/HCPCS: 00811; 82947; 88305; 99100; J2704; J3010; J7120

== ENCOUNTER 2024-10-02 13:03 | Inpatient (IN) | payer MEDICARE, OTHER ==
[2024-10-02] MEDS ORDERED: Ondansetron 4 MG Tab.DIS PO PRN (17:04)
[2024-10-02] MEDS ORDERED: 50% Dextrose in Water 50 ML Syringe IVPUSH PRN (17:34)
[2024-10-02 18:01] LABS: APPEARANCE,URINE CLEAR (CLEAR); GLUCOSE,URINE NEGATIVE (NEGATIVE); OCCULT BLOOD,URINE TRACE-INTACT (NEGATIVE)
[2024-10-02 18:14] LABS: SQUAMOUS EPITHELIAL CELLS,UR FEW /HPF (NOT SEEN)
[2024-10-02 18:24] LABS: LACTIC ACID 1.1 mmol/L (0.4-2.0)
[2024-10-02] MEDS: VANCOmycin 1.5 GM/300 ML 1.5 GM in Premix Bag 1 BAG IV ONE (19:50)
[2024-10-02] MEDS: Potassium Chloride 20 MEQ Tab.ER PO SCH (20:03)
[2024-10-03] MEDS ORDERED: 50% Dextrose in Water 50 ML Syringe IVPUSH PRN ×2 (00:13→10:35)
[2024-10-03 07:23] LABS: BASOPHILS ABSOLUTE AUTO 0.0 x10^3/uL (0.0-0.2); BASOPHILS PERCENT AUTO 0.8 % (0.2-1.2); EOSINOPHILS ABSOLUTE AUTO 0.1 x10^3/uL (0.0-0.5); EOSINOPHILS PERCENT AUTO 1.3 % (0.0-4.0); IMMATURE GRAN ABSOLUTE AUTO 0.01 x10^3/uL (0.00-0.07); IMMATURE GRAN PERCENT AUTO 0.30 % (0.00-0.43); LYMPHOCYTES ABSOLUTE AUTO 0.5 x10^3/uL (1.0-4.8); LYMPHOCYTES PERCENT AUTO 12.4 % (25.0-50.0); MONOCYTES ABSOLUTE AUTO 0.4 x10^3/uL (0.0-0.8); MONOCYTES PERCENT AUTO 10.6 % (2.0-11.0); NEUTROPHILS ABSOLUTE AUTO 2.8 x10^3/uL (1.8-7.7); NEUTROPHILS PERCENT AUTO 74.6 % (50.0-80.0); PLATELET COUNT,PLT 118 x10^3/uL (130-400); RED BLOOD CELL COUNT 3.20 x10^6/uL (4.00-5.50)
[2024-10-03 07:35] LABS: WHITE BLOOD CELL COUNT,WBC 3.8 x10^3/uL (4.0-10.0)
[2024-10-03 07:37] LABS: BLOOD UREA NITROGEN,BUN 36.0 mg/dL (7-18); CARBON DIOXIDE,CO2 22.0 mmol/L (21-32); CHLORIDE,CL 103.0 mmol/L (98-107); CREATININE 1.4 mg/dL (0.55-1.02); EST CRCL DRUG DOSING (CG) 27.81 mL/min; ESTIMATED GFR 40.0 mL/min (>=60); GLUCOSE RANDOM 333.0 mg/dL (70-99); POTASSIUM,K 3.0 mmol/L (3.5-5.1); SODIUM,NA 139.0 mmol/L (136-145)
[2024-10-03] MEDS: Insulin Glarg,Human.Rec.Analog 100 Unit/ML 10 ML Vial SUBCUT SCH (11:02)
[2024-10-03] MEDS: NS with KCl 40mEq 1,000 ML IV SCH (11:35)
[2024-10-03] MEDS: Potassium Chloride 10 MEQ Tab.ER PO SCH (11:43)
[2024-10-03] MEDS ORDERED: Hypromellose 0.3% Ophth Soln 15 ML Bottle EYEBOTH PRN (13:20)
[2024-10-03] MEDS: Hypromellose 0.3% Ophth Soln 15 ML Bottle EYEBOTH SCH (20:46)
[2024-10-03] MEDS: CYCLOSPORINE EYEBOTH SCH (22:11)
[2024-10-04 07:51] LABS: BLOOD UREA NITROGEN,BUN 27.0 mg/dL (7-18); CARBON DIOXIDE,CO2 24.0 mmol/L (21-32); CHLORIDE,CL 107.0 mmol/L (98-107); CREATININE 1.1 mg/dL (0.55-1.02); EST CRCL DRUG DOSING (CG) 35.4 mL/min; GLUCOSE RANDOM 364.0 mg/dL (70-99); POTASSIUM,K 3.3 mmol/L (3.5-5.1); SODIUM,NA 141.0 mmol/L (136-145)
[2024-10-04 07:52] LABS: ESTIMATED GFR 54.0 mL/min (>=60)
[2024-10-04 07:55] LABS: BASOPHILS ABSOLUTE AUTO 0.0 x10^3/uL (0.0-0.2); BASOPHILS PERCENT AUTO 0.5 % (0.2-1.2); EOSINOPHILS ABSOLUTE AUTO 0.2 x10^3/uL (0.0-0.5); EOSINOPHILS PERCENT AUTO 4.1 % (0.0-4.0); IMMATURE GRAN ABSOLUTE AUTO 0.01 x10^3/uL (0.00-0.07); IMMATURE GRAN PERCENT AUTO 0.30 % (0.00-0.43); LYMPHOCYTES ABSOLUTE AUTO 0.6 x10^3/uL (1.0-4.8); MONOCYTES ABSOLUTE AUTO 0.3 x10^3/uL (0.0-0.8); MONOCYTES PERCENT AUTO 9.0 % (2.0-11.0); NEUTROPHILS ABSOLUTE AUTO 2.6 x10^3/uL (1.8-7.7); NEUTROPHILS PERCENT AUTO 69.9 % (50.0-80.0); PLATELET COUNT,PLT 154 x10^3/uL (130-400); RED BLOOD CELL COUNT 3.27 x10^6/uL (4.00-5.50); WHITE BLOOD CELL COUNT,WBC 3.7 x10^3/uL (4.0-10.0)
[2024-10-04 08:10] LABS: LYMPHOCYTES PERCENT AUTO 16.2 % (25.0-50.0)
[2024-10-04] MEDS ORDERED: Non-Formulary Medication 1 Each (Cyclosporine [Restasis Multidose] 5.5 ML Drops) EYEBOTH SCH (09:00)
[2024-10-04] MEDS ORDERED: 50% Dextrose in Water 50 ML Syringe IVPUSH PRN ×2 (11:25→11:36)
[2024-10-04] MEDS: Potassium Chloride 10 MEQ Tab.ER PO SCH (11:46)
[2024-10-04] MEDS: Furosemide 20 MG/2 ML VIAL IV ONE (11:47)
[2024-10-05 07:25] LABS: BASOPHILS ABSOLUTE AUTO 0.0 x10^3/uL (0.0-0.2); BASOPHILS PERCENT AUTO 0.8 % (0.2-1.2); EOSINOPHILS ABSOLUTE AUTO 0.2 x10^3/uL (0.0-0.5); EOSINOPHILS PERCENT AUTO 5.0 % (0.0-4.0); IMMATURE GRAN ABSOLUTE AUTO 0.02 x10^3/uL (0.00-0.07); IMMATURE GRAN PERCENT AUTO 0.50 % (0.00-0.43); LYMPHOCYTES ABSOLUTE AUTO 0.8 x10^3/uL (1.0-4.8); LYMPHOCYTES PERCENT AUTO 18.9 % (25.0-50.0); MONOCYTES ABSOLUTE AUTO 0.3 x10^3/uL (0.0-0.8); MONOCYTES PERCENT AUTO 7.8 % (2.0-11.0); NEUTROPHILS ABSOLUTE AUTO 2.7 x10^3/uL (1.8-7.7); NEUTROPHILS PERCENT AUTO 67.0 % (50.0-80.0); PLATELET COUNT,PLT 195 x10^3/uL (130-400); RED BLOOD CELL COUNT 3.31 x10^6/uL (4.00-5.50); WHITE BLOOD CELL COUNT,WBC 4.0 x10^3/uL (4.0-10.0)
[2024-10-05 07:29] LABS: BLOOD UREA NITROGEN,BUN 16.0 mg/dL (7-18); CARBON DIOXIDE,CO2 29.0 mmol/L (21-32); CHLORIDE,CL 106.0 mmol/L (98-107); CREATININE 0.8 mg/dL (0.55-1.02); EST CRCL DRUG DOSING (CG) 48.67 mL/min; GLUCOSE RANDOM 274.0 mg/dL (70-99); SODIUM,NA 143.0 mmol/L (136-145)
[2024-10-05 07:38] LABS: ESTIMATED GFR 79.0 mL/min (>=60)
[2024-10-05 07:39] LABS: POTASSIUM,K 2.9 mmol/L (3.5-5.1)
[2024-10-05] MEDS: Potassium Chloride 20 MEQ Tab.ER PO ONE (12:02)
[2024-10-05 16:21] VITALS: BP 153/65; PULSE 83
[2024-10-06 23:06] LABS: URINE PROTEIN 30 mg/dL (1-14)
== END 2024-10-05 16:05 | disposition home or self-care (01) | DRG 682 ==
LOC: VM.MS 13:03 → OBSVTOIN 10-03 13:03
PROVIDERS: ADMIT Internal Medicine; ATTEND Internal Medicine
DX: N17.9 Acute kidney failure, unspecified (principal); I50.33 Acute on chronic diastolic (congestive) heart failure; I13.0 Hypertensive heart and chronic kidney disease with heart failure and stage 1 through stage 4 chronic kidney disease, or unspecified chronic kidney disease; E10.649 Type 1 diabetes mellitus with hypoglycemia without coma; M35.3 Polymyalgia rheumatica; K21.9 Gastro-esophageal reflux disease without esophagitis; Z66 Do not resuscitate; E86.0 Dehydration; M81.0 Age-related osteoporosis without current pathological fracture; M19.90 Unspecified osteoarthritis, unspecified site; F41.9 Anxiety disorder, unspecified; E10.22 Type 1 diabetes mellitus with diabetic chronic kidney disease; E87.6 Hypokalemia; D69.6 Thrombocytopenia, unspecified; I25.10 Atherosclerotic heart disease of native coronary artery without angina pectoris; D46.9 Myelodysplastic syndrome, unspecified; H53.8 Other visual disturbances; N18.30 Chronic kidney disease, stage 3 unspecified; E10.65 Type 1 diabetes mellitus with hyperglycemia; Z96.642 Presence of left artificial hip joint; D63.1 Anemia in chronic kidney disease; Z91.018 Allergy to other foods; Z89.021 Acquired absence of right finger(s); Z88.0 Allergy status to penicillin; Z88.6 Allergy status to analgesic agent; Z88.8 Allergy status to other drugs, medicaments and biological substances; Z88.5 Allergy status to narcotic agent; Z85.118 Personal history of other malignant neoplasm of bronchus and lung; Z98.42 Cataract extraction status, left eye; Z95.5 Presence of coronary angioplasty implant and graft; Z90.49 Acquired absence of other specified parts of digestive tract; Z90.6 Acquired absence of other parts of urinary tract; Z91.010 Allergy to peanuts; Z79.82 Long term (current) use of aspirin; Z79.899 Other long term (current) drug therapy; Z79.4 Long term (current) use of insulin; I25.2 Old myocardial infarction
CPT/HCPCS: 36415; 70450; 71046; 71250; 80048; 81001; 82570; 82947; 83605; 84156; 85025; 87040; 87086; 96361; 96365; 96366; 96367; 96375; 99232; 99232-GT; 99233; 99233-GT; 99239; 99239-GT; A9270-GY; G0378; J0696; J1815-GY; J1938; J3372; J3480; J7030